=== PATIENT | female | born 1975 | race Caucasian/White ===

== ENCOUNTER 2020-12-30 22:18 | Inpatient (IN) | payer OTHER, SELFPAY ==
[2020-12-30 22:32] VITALS: BP 137/83; PULSE 109; RESP 29; TEMP 36.7; O2SAT 36; BMI 47.0
[2020-12-30 22:38] VITALS: O2SAT 35
--- NOTE | 2020-12-30 22:54 | XRR_ITS ---
PROCEDURE INFORMATION: Exam: XR Chest Exam date and time: 12/30/2020 10:54 PM Age: 45 years old Clinical indication: Dyspnea; Additional info: SOB TECHNIQUE: Imaging protocol: XR of the chest. Views: 1 view. COMPARISON: No relevant prior studies available. XR/XR chest 1V portable [id number] IMPRESSION: Interstitial and patchy airspace opacities are observed in both lungs which may represent pulmonary edema, ARDS or pneumonia. A small right pleural effusion is present. No pneumothorax is seen. The heart is normal in size. No acute fracture is seen.
[2020-12-30] MEDS: albuterol 8 gm MDI 4 PUFF INHALATION (23:05)
[2020-12-30 23:10] VITALS: PULSE 100; RESP 26; O2SAT 94
[2020-12-30 23:15] LABS: ABG PCO2 42.9 mmHg (35-45); ABG PH Result 7.39 (7.35-7.45); Arterial Blood Gas Hematocrit 37.1 % (37-47); Blood Gas Allen Test Pos; Blood Gas Sample Site Radial, right; Blood Gas Sample Type Arterial; HCO3 ABG 26.2 mmol/L (22-26); Oxygen Device NRB; PO2 ABG 67.2 mmHg (80.0-100.0)
[2020-12-30 23:20] VITALS: PULSE 102; RESP 26; O2SAT 96
[2020-12-31] VITALS (11 sets, daily range): BP systolic 111–141; BP diastolic 70–90; PULSE 80–95; RESP 16–24; TEMP 36.8–36.9; O2SAT 90–96
[2020-12-31 00:01] LABS: Basophils % 0.2 %; Hematocrit 37.2 % (37.0-47.0); Hemoglobin 11.3 g/dL (11.5-15.3); Lymphocytes # 0.7 10^3/uL (0.8-4.8); Lymphocytes % 14.1 %; Mean Corpuscular HGB Conc 30.4 g/dL (30.0-36.0); Mean Corpuscular Hemoglobin 25.7 pg (28.0-34.0); Mean Corpuscular Volume 84.7 fL (81-99); Mean Platelet Volume 10.2 fL (7.4-10.4); Monocytes # 0.6 10^3/uL (0.2-0.9); Monocytes % 11.9 %; Neutrophils # 3.59 10^3/uL (1.8-7.7); Neutrophils % 73.6 %; Nucleated Red Blood Cells % 0 %; Platelet Count 206 10^3/cmm (130-400); Red Blood Count 4.39 10^6/uL (4.1-5.3); Red Cell Distribution Width 16.3 % (12.1-15.1); White Blood Count 4.9 10^3/uL (4.0-10.0)
[2020-12-31 00:13] LABS: D Dimer 1.12 ug/mIFEU (0-0.59)
[2020-12-31 00:20] LABS: Lactic Sepsis W/Reflex 1.5 mmol/L (0.5-2.2)
--- NOTE | 2020-12-31 00:22 | ED_ITS ---
HPI - COVID General: Chief Complaint: COVID symptoms Stated Complaint: Fever\Coughing Time Seen by Provider: 12/30/20 22:54 Triage information: Has fever, cough or shortness of breath . No known COVID + exposure last 14 days History of Present Illness: HPI Narrative: 45-year-old female. She does not see a doctor. She notes that she has been sick 6 Friday. She had some body aches, headaches, cough, with some shortness of breath. She says she has a history of bronchitis, and figured it was that. She was sent home from work earlier in the evening because she was very short of breath. She presents to triage in our lobby with a pulse ox reading of 35% on room air. She denies any significant vomiting or diarrhea MD complaint: has COVID symptoms Prior covid testing: no COVID 19 common symptoms: positive fever(s), cough, non-productive cough, dyspnea and headache(s); negative nausea, vomiting or diarrhea COVID 19 other sytmptoms: positive chest pain COVID Results: SARS-CoV-2 Antigen (Rapid) Positive (Negative) H 12/30/20 23:45 12/30/20 Review of Systems Const: Reports: fever(s) Card: Reports: chest pain, edema and swelling of feet/ankles (chronic); Denies: palpitations Resp: Reports: dyspnea and non-productive cough GI: Denies: abdominal pain, nausea, vomiting or diarrhea Neuro: Reports: headache(s) Physical Exam Const: GENERAL APPEARANCE: cooperative, in distress and ill appearing ORIENTATION/CONSCIOUSNESS: Yes awake, Yes oriented to person, Yes oriented to place and Yes oriented to time HENMT: COMMON NORMALS: normocephalic HEAD & SCALP: normocephalic Eye: COMMON NORMALS: Equal, round and reactive pupils present and EOMs intact bilaterally PUPIL: Yes Equal, round and reactive pupils present Chest: COMMONS NORMALS: normal inspection of the chest Resp: EFFORT & INSPECTION: Yes tachypneic, Yes respiratory distress, No Actively coughing and Yes uses accessory muscles AUSCULTATION: rhonchi and wheezes Cardio: COMMON NORMALS: regular rhythm RATE: tachycardic RHYTHM: regular rhythm GI: COMMON NORMALS: Normal to inspection, nondistended, normoactive bowel sounds present and Soft to palpation PALPATION: Yes Soft to palpation Extremity: GENERAL: Yes edema (significant, chronic appearing) Neuro: SENSORIUM/ORIENTATION: Yes oriented to person, Yes oriented to place and Yes oriented to time Course Vital Signs: Vital signs: Vital Signs Temperature 98.1 F 12/30/20 22:32 Pulse Rate 102 H 12/30/20 23:20 Respiratory Rate 26 H 12/30/20 23:20 Blood Pressure 137/83 12/30/20 22:32 Pulse Oximetry 96 12/30/20 23:20 MDM - COVID MDM Narrative: Medical decision making narrative: 45-year-old female with a room air pulse ox of 35%. She is placed immediately on nonrebreather mask at 15 L. Saturations are 95 to 99% now. Heart rate is come down into the 80s. Blood pressure 136/95. High flow nasal cannula was ordered, but the patient did not tolerate. She also refused BiPAP. She prefers the nonrebreather mask. Chest x-ray shows severe bilateral pneumonitis. Her white blood cell count is 4.9. Sodium 134. Creatinine 0.7. Her lactic acid is negative. Her CRP is elevated, pro calcitonin is normal. Her rapid antigen for COVID-19 is positive. She has been given dexamethasone. We will order antivirals for her. Lab Data: Labs: Lab Results 12/30/20 12/30/20 12/30/20 Range/Units 23:10 23:45 23:45 WBC 4.9 (4.0-10.0) 10^3/ uL RBC 4.39 (4.1-5.3) 10^6/u L Hgb 11.3 L (11.5-15.3) g/dL Hct 37.2 (37.0-47.0) % MCV 84.7 (81-99) fL MCH 25.7 L (28.0-34.0) pg MCHC 30.4 (30.0-36.0) g/dL RDW 16.3 H (12.1-15.1) % Plt Count 206 (130-400) 10^3/c mm MPV 10.2 (7.4-10.4) fL Neut % (Auto) 73.6 % Lymph % (Auto) 14.1 % Morrison % (Auto) 11.9 % Eos % (Auto) 0.0 % Baso % (Auto) 0.2 % Neut # (Auto) 3.59 (1.8-7.7) 10^3/u L Lymph # (Auto) 0.7 L (0.8-4.8) 10^3/u L Morrison # (Auto) 0.6 (0.2-0.9) 10^3/u L Eos # (Auto) 0.0 (0.0-0.8) 10^3/u L Baso # (Auto) 0.0 (0.0-0.1) 10^3/u L Nucleated RBC % (a uto) 0 % Nucleated RBCs # 0.0 /100WBC D-Dimer 1.12 H (0-0.59) ug/mIFE U Specimen Type Arterial Sample Site Radial, right ABG pH 7.39 (7.35-7.45) ABG pCO2 42.9 (35-45) mmHg ABG pO2 67.2 L (80.0-100.0) mmH g ABG HCO3 26.2 H (22-26) mmol/L ABG Base Excess 1.0 (-2.0-2.0) mmol/ L Test Pos Hematocrit 37.1 (37-47) % O2 Delivery Device Nrb O2 Liters/Min 15.0 % Merchandise Flow Team Member ID Hinja Sodium (136-145) mmol/L Potassium (3.5-5.1) mmol/L Chloride (98-107) mmol/L Carbon Dioxide (22-29) mmol/L Anion Gap (5-19) BUN (6-20) mg/dL Creatinine (0.5-0.9) mg/dL GFR Calculation (90-130) mL/min Glucose (65-115) mg/dL Calculated Osmolal ity (285-295) mOsm/k g Lactic Acid (0.5-2.2) mmol/L Calcium (8.5-10.5) mg/dL Total Bilirubin (0.15-1.2) mg/dL AST (0-32) U/L ALT (0-33) U/L Alkaline Phosphata se (35-105) IU/L Lactate Dehydrogen ase (135-214) U/L Creatine Kinase (26-192) U/L C-Reactive Protein (0.0-4.9) mg/L NT-Pro-B Natriuret Pep (0-125) pg/mL Total Protein (6.6-8.7) g/dL Albumin (3.5-5.2) g/dL Globulin (1.3-4.6) g/dL Procalcitonin (0-0.5) ng/mL SARS-CoV-2 Ag (Rap id) (Negative) 12/30/20 12/30/20 12/30/20 Range/Units 23:45 23:45 23:45 WBC (4.0-10.0) 10^3/ uL RBC (4.1-5.3) 10^6/u L Hgb (11.5-15.3) g/dL Hct (37.0-47.0) % MCV (81-99) fL MCH (28.0-34.0) pg MCHC (30.0-36.0) g/dL RDW (12.1-15.1) % Plt Count (130-400) 10^3/c mm MPV (7.4-10.4) fL Neut % (Auto) % Lymph % (Auto) % Morrison % (Auto) % Eos % (Auto) % Baso % (Auto) % Neut # (Auto) (1.8-7.7) 10^3/u L Lymph # (Auto) (0.8-4.8) 10^3/u L Morrison # (Auto) (0.2-0.9) 10^3/u L Eos # (Auto) (0.0-0.8) 10^3/u L Baso # (Auto) (0.0-0.1) 10^3/u L Nucleated RBC % (a uto) % Nucleated RBCs # /100WBC D-Dimer (0-0.59) ug/mIFE U Specimen Type Sample Site ABG pH (7.35-7.45) ABG pCO2 (35-45) mmHg ABG pO2 (80.0-100.0) mmH g ABG HCO3 (22-26) mmol/L ABG Base Excess (-2.0-2.0) mmol/ L Test Hematocrit (37-47) % O2 Delivery Device O2 Liters/Min % Merchandise Flow Team Member ID Sodium 134 L (136-145) mmol/L Potassium 4.0 (3.5-5.1) mmol/L Chloride 98 (98-107) mmol/L Carbon Dioxide 24 (22-29) mmol/L Anion Gap 16.0 (5-19) BUN 21 H (6-20) mg/dL Creatinine 0.7 (0.5-0.9) mg/dL GFR Calculation 90.5 (90-130) mL/min Glucose 112 (65-115) mg/dL Calculated Osmolal ity 282 L (285-295) mOsm/k g Lactic Acid 1.5 (0.5-2.2) mmol/L Calcium 7.4 L (8.5-10.5) mg/dL Total Bilirubin 0.4 (0.15-1.2) mg/dL AST 35 H (0-32) U/L ALT 21 (0-33) U/L Alkaline Phosphata se 205 H (35-105) IU/L Lactate Dehydrogen ase 428 H (135-214) U/L Creatine Kinase 102 (26-192) U/L C-Reactive Protein 90.4 H (0.0-4.9) mg/L NT-Pro-B Natriuret Pep 1258 H (0-125) pg/mL Total Protein 7.0 (6.6-8.7) g/dL Albumin 3.1 L (3.5-5.2) g/dL Globulin 3.9 (1.3-4.6) g/dL Procalcitonin 0.41 (0-0.5) ng/mL SARS-CoV-2 Ag (Rap id) Positive H (Negative) COVID Results: SARS-CoV-2 Antigen (Rapid) Positive (Negative) H 12/30/20 23:45 12/30/20 Critical Care Time Critical Care Time: Critical Care Time: Yes Total Critical Care Time: 35 Attestation: This case had a high probability of a clinically significant, sudden, or life threatening deterioration of this patient's condition which required my full and direct attention, intervention and personal management. 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
[2020-12-31 00:30] LABS: NT Pro B Type Natriuretic Pept 1258 pg/mL (0-125); Procalcitonin 0.41 ng/mL (0-0.5)
[2020-12-31 00:41] LABS: Alanine Aminotransferase 21 U/L (0-33); Albumin Level 3.1 g/dL (3.5-5.2); Alkaline Phosphatase 205 IU/L (35-105); Aspartate Amino Transferase 35 U/L (0-32); Blood Urea Nitrogen 21 mg/dL (6-20); C Reactive Protein 90.4 mg/L (0.0-4.9); Calcium 7.4 mg/dL (8.5-10.5); Carbon Dioxide 24 mmol/L (22-29); Chloride 98 mmol/L (98-107); Creatine Phosphokinase 102 U/L (26-192); Globulin 3.9 g/dL (1.3-4.6); Glomerular Filtration Rate 90.5 mL/min (90-130); Glucose 112 mg/dL (65-115); Lactate Dehydrogenase 428 U/L (135-214); Osmolality Calculated 282 mOsm/kg (285-295); Sodium 134 mmol/L (136-145); Total Bilirubin 0.4 mg/dL (0.15-1.2)
[2020-12-31 01:59] LABS: SARS Covid-2 Antigen Positive (Negative)
--- NOTE | 2020-12-31 04:36 | PM.HP ---
Providers/Chief Complaint Admitting Physician: Karma Flores MD Chief Complaint: Fever\Coughing History of Present Illness Quynh Spangler is a 45 year old female without known PMH , no prior medical care , obesity with BMI was sent home from work after she appeared to be short of breath. She has been symptomatic for 6 days. had some body aches, headaches, cough, with some shortness of breath. She assumed it was bronchitis due to her past history. She is unvaccinated, tested + COVID. Review of Systems General: Reports: 10 or more systems reviewed and unremarkable except in HPI and below Const: Denies: fever(s), chills or body aches Eyes: Denies: change in vision, blurry vision or photophobia ENMT: Reports: hoarseness; Denies: throat pain, enlarged tonsils, odynophagia or nasal congestion Card: Denies: chest pain, palpitations, irregular heart rhythm, edema, swelling of feet/ankles, lightheadedness, pre-syncope, dyspnea on exertion or orthopnea Resp: Denies: dyspnea, productive cough, non-productive cough, wheezing, stridor, pain on inspiration, change in phlegm color, hemoptysis or chest congestion GI: Denies: abdominal pain, nausea, vomiting, hematemesis, coffee ground emesis, dysphagia, heartburn, diarrhea, constipation, GI cramping, change in stool character, hematochezia or melena : Denies: flank pain, difficulty voiding, dysuria, urinary frequency, urinary urgency, urinary hesitancy or hematuria Musc: Denies: neck pain, back pain, extremity pain, joint swelling, joint warmth or deformity Neuro: Denies: headache(s), numbness in extremities, weakness in extremities, sensory changes, difficulty walking, frequent falls, dizziness, vertigo, behavioral changes, Slurred speech present or seizure-like activity Psych: Denies: anxiety, depression, suicidal ideation or homicidal ideation Endo: Denies: polyuria, polydipsia, tired all the time, cold intolerance or hot flashes Zay/Lymph: Denies: easy bruising or easy bleeding Medications/Allergies Allergies Allergy/AdvReac Type Severity Reaction Status Date / Time No Known Allergies Allergy Verified 12/30/20 22:38 Vitals/I&O/Wt Last Vital Signs Temp 98.1 F 12/30/20 22:32 Pulse 102 H 12/30/20 23:20 Resp 26 H 12/30/20 23:20 BP 137/83 12/30/20 22:32 Pulse Ox 96 12/30/20 23:20 Weight last 48 hrs Weight 136.078 kg Physical Exam Narrative: EXAM NARRATIVE: GEN: Awake, alert and oriented, no acute distress CVS: S1S2 N RS: B/L coarse breath sounds Abd: Soft, nt/nd , bs+ LACROSSE PLAYER: no focal neuro deficits Data : 12/30/20 23:45 12/30/20 23:45 Micro: Microbiology 12/30/20 23:45 Blood Culture - Preliminary Blood SPECIMEN COLLECTED 12/30/20 23:30 Blood Culture - Preliminary Blood SPECIMEN COLLECTED A&P Assessment and plan (1) Respiratory failure: Due to COVID 19 Remdisivir 200mg iv x 1 followed by 100mg iv daily dexamethasone 6mg IVP daily duoneb q6h, budesonide q12h empiric levofloxacin Flutter valve/spirometer at bedside trend inflammatory markers including CRP, LDH, D dimer, Ferritin CTA PE to evalaute for PE given elevated D dimer check trop, BNP and EKG Status: Acute Qualifiers: Chronicity: acute Respiratory failure complication: hypoxia Qualified Code(s): J96.01 - Acute respiratory failure with hypoxia (2) Pneumonia due to COVID-19 virus: Status: Acute Attestations Medical Necessity Statement*: >2midnight admission will be needed for above treatment Coding Level of Care Code Acute Marine Extension Agent for [facility] Diagnoses Respiratory failure J96.01 Chronicity: acute Respiratory failure complication: hypoxia Pneumonia due to COVID-19 virus U07.1; J12.82
--- NOTE | 2020-12-31 04:40 | ECG_ITS ---
[facility] Test Date: 2020-12-31 Pat Name: Quynh Spangler Department: Room: Gender: Female Creche Attendant: : 1975 Requested By: Karma Hoffmann Order Number: [id number] Reading MD: NATHALIE PERSAUD Measurements Intervals [place] Rate: 89 P: 79 [place]: 130 QRS: 97 QRSD: 89 T: 44 QT: 343 QTc: 417 Interpretive Statements SINUS RHYTHM BORDERLINE RIGHT AXIS DEVIATION [QRS AXIS > 90] No previous ECG available for comparison Electronically Signed On 12-31-2020 20:13:34 CDT by NATHALIE PERSAUD [email or web address]
[2020-12-31] MEDS: enoxaparin 40 mg/0.4 mL Syringe SUBCUT (05:18)
[2020-12-31] MEDS: dexamethasone 4 mg/mL INJ 6 MG IVP (05:43)
[2020-12-31 05:45] LABS: Troponin T (5th) Once 22 ng/L (0-10)
[2020-12-31 05:52] LABS: NT Pro B Type Natriuretic Pept 1341 pg/mL (0-125)
[2020-12-31 06:47] LABS: Bilirubin Urine 1+ (Negative); Blood Urine 2+ (Negative); Glucose Urine UA Norm (Normal); Ketones Urine Negative (Negative); Leukocyte Esterase Urine 2+ (Negative); Nitrate Urine Negative (Negative); Protein Urine Trace (Negative); Specific Gravity, Urine 1.015 (1.005-1.030); Urine Appearance Clear (CLEAR); Urine Color Dark Yellow (Yellow); Urobilinogen Urine 4 mg/dL (Negative); pH Urine 6 (5-7)
[2020-12-31 06:48] LABS: Add Urine Culture? Yes; Add Urine Microscopic? YES; Bacteria Urine 2+ /hpf; RBC Urine RARE /hpf (0-2)
--- NOTE | 2020-12-31 09:41 | CTR_ITS ---
PROCEDURE INFORMATION: Exam: CTA Chest With Contrast Exam date and time: 12/31/2020 9:41 AM Age: 45 years old Clinical indication: Cough and fever; Additional info: Covid TECHNIQUE: Imaging protocol: Computed tomographic angiography of the chest with contrast. 3D rendering (Not supervised by radiologist): MIP and/or 3D reconstructed images were created by the technologist. Total images: 739 Radiation optimization: All CT scans at this facility use at least one of these dose optimization techniques: automated exposure control; mA and/or kV adjustment per patient size (includes targeted exams where dose is matched to clinical indication); or iterative reconstruction. Contrast material: OMNIPAQUE 350; Contrast volume: 77 ml; Contrast route: INTRAVENOUS (IV); COMPARISON: CR (CHEST, ) 12/30/2020 11:13 PM RADIATION DOSE METRICS: Total DLP (mGy-cm): 473.06 FINDINGS: Pulmonary arteries: Pulmonary artery evaluation of good technical quality with no pulmonary artery embolism identified. Aorta: Mild atherosclerotic disease is evident. Lungs: Extensive bilateral irregular areas of lung consolidation ground-glass opacities in interstitial thickening. Pleural spaces: Small bilateral pleural effusions are present. Heart: Mild cardiomegaly. Lymph nodes: Prominent mediastinal lymph nodes may be reactive. Bones/joints: Partially visualized spinal fusion hardware noted. Spinal degenerative changes are evident. Soft tissues: Unremarkable. CT/CT angio chest PE protcl [id number] IMPRESSION: 1. Mild cardiomegaly. 2. Small bilateral pleural effusions are present. 3. No pulmonary artery embolism identified. 4. Extensive bilateral irregular areas of lung consolidation ground-glass opacities in interstitial thickening. Commonly reported imaging features of COVID-19 pneumonia are present. Other processes such as influenza pneumonia and organizing pneumonia, as can be seen with drug toxicity and connective tissue disease, can cause a similar imaging pattern. (Reference: Genaro) REFERENCES: Genaro Maza, et al., Radiological Society of [place] Expert Consensus Statement on Reporting Chest CT Findings Related to COVID-19. Endorsed by the Society of Thoracic Radiology, the [place] [employer], and RSNA. Published August 25, 2019. Radiation Dose CTDIVOL = (mGy): DLP = 473.06 (mGy-cm)
[2020-12-31] MEDS: iohexol 350 mg/mL 100 mL Btl IV (10:17)
[2020-12-31] MEDS: pantoprazole DR 40 mg Tablet PO (10:46)
[2020-12-31] MEDS: levoFLOXacin 750 mg Tablet PO (10:46)
[2020-12-31 12:27] LABS: Hematocrit 39.6 % (37.0-47.0); Hemoglobin 12.2 g/dL (11.5-15.3); Lymphocytes # 0.5 10^3/uL (0.8-4.8); Lymphocytes % 10.3 %; Mean Corpuscular HGB Conc 30.8 g/dL (30.0-36.0); Mean Corpuscular Hemoglobin 26.2 pg (28.0-34.0); Mean Corpuscular Volume 85.2 fL (81-99); Mean Platelet Volume 10.2 fL (7.4-10.4); Monocytes # 0.3 10^3/uL (0.2-0.9); Monocytes % 5.1 %; Neutrophils # 4.27 10^3/uL (1.8-7.7); Neutrophils % 84.2 %; Nucleated Red Blood Cells % 0 %; Platelet Count 238 10^3/cmm (130-400); Red Blood Count 4.65 10^6/uL (4.1-5.3); Red Cell Distribution Width 16.5 % (12.1-15.1); White Blood Count 5.1 10^3/uL (4.0-10.0)
[2020-12-31 12:43] LABS: Alanine Aminotransferase 20 U/L (0-33); Albumin Level 3.2 g/dL (3.5-5.2); Alkaline Phosphatase 221 IU/L (35-105); Anion Gap 13.5 (5-19); Aspartate Amino Transferase 32 U/L (0-32); Blood Urea Nitrogen 15 mg/dL (6-20); C Reactive Protein 83.5 mg/L (0.0-4.9); Calcium 7.7 mg/dL (8.5-10.5); Carbon Dioxide 26 mmol/L (22-29); Chloride 100 mmol/L (98-107); Creatine Phosphokinase 94 U/L (26-192); Globulin 4.4 g/dL (1.3-4.6); Glomerular Filtration Rate 108.1 mL/min (90-130); Glucose 121 mg/dL (65-115); Lactate Dehydrogenase 524 U/L (135-214); Magnesium 2.3 mg/dL (1.7-2.3); Osmolality Calculated 282 mOsm/kg (285-295); Phosphorus 2.5 mg/dL (2.5-4.5); Potassium 4.5 mmol/L (3.5-5.1); Sodium 135 mmol/L (136-145); Total Bilirubin 0.4 mg/dL (0.15-1.2); Total Protein 7.6 g/dL (6.6-8.7)
--- NOTE | 2020-12-31 13:30 | P.PN_ITS ---
Subjective Subjective: Interval history: Admitted overnight. H&P and labs appreciated. Examination today patient seen in the ER. Currently on 12 L nonrebreather mask. Denies any nausea vomiting, headache. States does not have appetite. States everything tastes bad, denies any nausea vomiting, headache. Discussed of transitioning over to high flow nasal cannula keeping her saturation over 90% but she states she does not like things put in her nose and makes her very anxious so is requesting to be kept on nonrebreather mask for as long as possible. We also discussed being on nonrebreather would make it difficult for her to eat. She states for now she does not want to eat and 1 Augmentin nonrebreather mask. Vitals/I&O/Wt Last Vital Signs Temp 98.3 F 12/31/20 06:12 Pulse 88 12/31/20 10:29 Resp 18 12/31/20 10:29 BP 112/76 12/31/20 10:29 Pulse Ox 90 12/31/20 10:29 Weight last 48 hrs Weight 136.078 kg Physical Exam Narrative: EXAM NARRATIVE: General: No acute distress, AO x3 on nonrebreather mask, saturating 90%. Morbidly obese, looking dehydrated HEENT: PERRLA, pupils bilaterally equal and reactive Chest: Bilateral bronchial breath sounds, occasional rhonchi all over the lung schrader with occasional crackles, equal good air entry bilaterally CVS: S1-S2 regular, no murmurs, no tachycardia, no gallops, no rubs Abdomen: Soft, nontender, no organomegaly, bowel sounds present Neuro: No focal deficits, no facial deformity, AO x3, power 5/5 in all limbs Data : 12/31/20 12:01 12/31/20 12:01 Micro: Microbiology 12/31/20 06:10 Legionella Urinary Antigen - Final Unknown Source 12/30/20 23:45 Blood Culture - Preliminary Blood SPECIMEN COLLECTED 12/30/20 23:30 Blood Culture - Preliminary Blood SPECIMEN COLLECTED A&P Assessment and plan (1) Respiratory failure: Status: Acute Qualifiers: Chronicity: acute Respiratory failure complication: hypoxia Qualified Code(s): J96.01 - Acute respiratory failure with hypoxia (2) Pneumonia due to COVID-19 virus: Status: Acute Additional A&P Information Hypoxia/respiratory failure secondary to COVID-19 pneumonia: At least moderate disease. Continue with remdesivir to finish 5-day course. Dexamethasone 6 mg IV daily. DuoNebs every 4 hours, budesonide twice daily. Vitamin C, zinc. Tessalon Perles for cough suppression. Pulmonary toilet with incentive spirometry flutter valve. Monitor inflammatory markers including ESR, CRP, fibrinogen, LDH. Pro-Osvaldo negative, no leukocytosis. Low chances of bacterial pneumonia for now. Check MRSA swab, urine Legionella, bacterial antigen. D-dimer elevated. CTA angio to rule out pulmonary embolism. For now start patient on Eliquis 5 mg twice daily. If CTA negative for PE patient will most likely require anticoagulation for 14 days on discharge. Given hypoxic respiratory failure we will try to keep patient as negative as possible. Strict input output charting. Daily weights. For now patient looks mildly dehydrated. Start patient on normal saline at 50 cc/h. Xanax 0.5 3 times daily as needed for anxiety. UTI: Complains of mild dysuria. UA concerning. Continue with levofloxacin. We will follow up urine culture results and de- escalate antibiotics accordingly. Full code. Eliquis will help with DVT prophylaxis. Regular diet. Protonix for PUD prophylaxis Transfer to when room available. Attestations Medical Necessity Statement*: Patient requires further hospitalization for management of hypoxia secondary to COVID-19 pneumonia requiring high oxygen supplementation. Time Spent in Patient Care: Greater than 35 minutes (>than 50% of time spent in counselling and/or direct pt care on unit) . Coding Level of Care Code Acute Service Center Technician for [facility] Diagnoses Respiratory failure J96.01 Chronicity: acute Respiratory failure complication: hypoxia Pneumonia due to COVID-19 virus U07.1; J12.82
[2020-12-31 13:32] LABS: INR 0.95 (0.8-1.2)
[2020-12-31] MEDS: remdesivir 200 MG in sodium chloride 0.9% (100 ml) 100 ML 100 MG IV (13:35)
[2020-12-31 13:45] LABS: D Dimer 1.26 ug/mIFEU (0-0.59)
[2020-12-31] MEDS: zinc gluconate 50 mg Tablet PO (14:04)
[2020-12-31 14:22] LABS: Erythrocyte Sedimentation Rate 46 mm/hr (0-15)
[2020-12-31] MEDS: benzonatate 100 mg Capsule PO ×2 (14:31→21:59)
[2020-12-31] MEDS: ipratropium-albuterol 3 mL Neb INHALATION ×2 (16:33→22:07)
[2020-12-31] MEDS: apixaban 5 mg Tablet PO (21:59)
[2020-12-31] MEDS: ascorbic acid 500 mg Tablet 1000 MG PO (21:59)
[2020-12-31] MEDS: budesonide 0.5 mg/2 mL Neb INHALATION (22:06)
[2021-01-01] VITALS (13 sets, daily range): BP systolic 106–156; BP diastolic 75–87; PULSE 68–91; RESP 18–28; TEMP 36.6–36.8; O2SAT 88–96
[2021-01-01] MEDS: ipratropium-albuterol 3 mL Neb INHALATION ×4 (02:47→20:04)
[2021-01-01] MEDS: dexamethasone 10 mg/mL INJ 6 MG IVP (05:54)
[2021-01-01 06:47] LABS: C Reactive Protein 49.3 mg/L (0.0-4.9); D Dimer 1.28 ug/mIFEU (0-0.59); Ferritin 97 ng/mL (15-150); Lactate Dehydrogenase 445 U/L (135-214)
[2021-01-01 06:51] LABS: Procalcitonin 0.25 ng/mL (0-0.5)
[2021-01-01] MEDS: budesonide 0.5 mg/2 mL Neb INHALATION ×2 (09:03→20:04)
[2021-01-01] MEDS: levoFLOXacin 750 mg Tablet PO (10:26)
[2021-01-01] MEDS: zinc gluconate 50 mg Tablet PO (10:27)
[2021-01-01] MEDS: pantoprazole DR 40 mg Tablet PO (10:28)
[2021-01-01] MEDS: ascorbic acid 500 mg Tablet 1000 MG PO ×2 (10:28→19:03)
[2021-01-01] MEDS: apixaban 5 mg Tablet PO (10:28)
[2021-01-01] MEDS: benzonatate 100 mg Capsule PO ×3 (10:28→22:09)
--- NOTE | 2021-01-01 11:21 | P.PN_ITS ---
Subjective Subjective: Interval history: Quynh reports she is still significantly short of breath. She is not for sure if she is better. She can get up to a bedside commode. Medications: Reviewed: Yes Vitals/I&O/Wt Last Vital Signs Temp 97.9 F 01/01/21 08:00 Pulse 86 01/01/21 09:14 Resp 22 H 01/01/21 09:14 BP 106/75 01/01/21 08:00 Pulse Ox 93 01/01/21 09:14 12/31/20 01/01/21 01/01/21 22:59 06:59 14:59 Intake Total 360 / 460 200 / 660 Output Total 1300 / 1300 Balance 360 / 460 -1100 / -640 Weight last 48 hrs Weight 136.078 kg Physical Exam Narrative: EXAM NARRATIVE: General exam no apparent distress Cardiovascular regular rate and rhythm without murmur Lungs coarse breath sounds bilaterally Abdomen is soft with positive bowel sounds, obese Extremities trace bilateral edema Data : 12/31/20 12:01 12/31/20 12:01 Micro: Microbiology 12/31/20 06:10 Urine Culture - Final Urine,Clean Catch 12/30/20 23:45 Blood Culture - Preliminary Blood NEGATIVE TO DATE 12/30/20 23:30 Blood Culture - Preliminary Blood NEGATIVE TO DATE 12/31/20 06:10 Legionella Urinary Antigen - Final Unknown Source A&P Assessment and plan (1) Respiratory failure: Due to COVID 19 Continue remdesivir Continue DuoNeb Continue budesonide Levaquin empirically Incentive spirometry CT pulmonary embolism protocol negative for PE Lasix 20 mg IV x1. BNP is elevated. Bacterial antigen panel, MRSA PCR pending Procalcitonin level not elevated Improvement not significant over the first 24 hours. Actemra to be given today. Status: Acute Qualifiers: Chronicity: acute Respiratory failure complication: hypoxia Qualified Code(s): J96.01 - Acute respiratory failure with hypoxia (2) Pneumonia due to COVID-19 virus: Status: Acute Additional A&P Information Full code Eliquis for DVT prophylaxis. Dosing decreased. 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
[2021-01-01] MEDS: FUROsemide 10 mg/mL SDV 2mL 20 MG IVP (12:54)
[2021-01-01] MEDS: remdesivir 100 MG in sodium chloride 0.9% (100 ml) 100 ML IV (19:03)
[2021-01-01] MEDS: apixaban 5 mg Tablet 2.5 MG PO (22:09)
[2021-01-02] VITALS (16 sets, daily range): BP systolic 111–175; BP diastolic 68–107; PULSE 73–89; RESP 17–30; TEMP 36.7–37.5; O2SAT 90–98
[2021-01-02] MEDS: ipratropium-albuterol 3 mL Neb INHALATION ×4 (03:40→20:07)
[2021-01-02] MEDS: dexamethasone 10 mg/mL INJ 6 MG IVP (04:53)
[2021-01-02 07:17] LABS: Hematocrit 38.4 % (37.0-47.0); Hemoglobin 11.4 g/dL (11.5-15.3); Lymphocytes # 0.6 10^3/uL (0.8-4.8); Lymphocytes % 13.5 %; Mean Corpuscular HGB Conc 29.7 g/dL (30.0-36.0); Mean Corpuscular Volume 87.5 fL (81-99); Mean Platelet Volume 10.1 fL (7.4-10.4); Monocytes # 0.4 10^3/uL (0.2-0.9); Monocytes % 8.6 %; Neutrophils # 3.14 10^3/uL (1.8-7.7); Neutrophils % 77.4 %; Nucleated Red Blood Cells % 0 %; Platelet Count 223 10^3/cmm (130-400); Red Blood Count 4.39 10^6/uL (4.1-5.3); Red Cell Distribution Width 16.5 % (12.1-15.1); White Blood Count 4.1 10^3/uL (4.0-10.0)
[2021-01-02 07:45] LABS: Alanine Aminotransferase 14 U/L (0-33); Alkaline Phosphatase 173 IU/L (35-105); Anion Gap 11.3 (5-19); Aspartate Amino Transferase 20 U/L (0-32); Blood Urea Nitrogen 21 mg/dL (6-20); Carbon Dioxide 26 mmol/L (22-29); Chloride 103 mmol/L (98-107); Globulin 4.1 g/dL (1.3-4.6); Glomerular Filtration Rate 172.6 mL/min (90-130); Glucose 107 mg/dL (65-115); Osmolality Calculated 285 mOsm/kg (285-295); Potassium 4.3 mmol/L (3.5-5.1); Sodium 136 mmol/L (136-145); Total Bilirubin 0.3 mg/dL (0.15-1.2); Total Protein 7.1 g/dL (6.6-8.7)
[2021-01-02 08:00] LABS: Calcium 8.3 mg/dL (8.5-10.5)
[2021-01-02] MEDS: benzonatate 100 mg Capsule PO ×3 (08:30→21:45)
[2021-01-02] MEDS: levoFLOXacin 750 mg Tablet PO (08:30)
[2021-01-02] MEDS: zinc gluconate 50 mg Tablet PO (08:30)
[2021-01-02] MEDS: ascorbic acid 500 mg Tablet 1000 MG PO ×2 (08:31→17:31)
[2021-01-02] MEDS: pantoprazole DR 40 mg Tablet PO (08:31)
[2021-01-02] MEDS: apixaban 5 mg Tablet 2.5 MG PO ×2 (08:31→21:45)
[2021-01-02] MEDS: budesonide 0.5 mg/2 mL Neb INHALATION ×2 (09:18→20:07)
--- NOTE | 2021-01-02 09:48 | PC.CHAP ---
Pastoral Care Encounter/Spiritual Assessment Type of Contact [] Declined cherry dipper visit [] Patient/Family/Request visit [] Outpatient visit [] Follow-up visit [] Physician referral [] Code/Alert [x] Routine visit [] Staff referral [] Actively dying [] Patient sleeping [] Family support [] [] Out of room [] Palliative care [] [] Receiving care in room [] Pre-surgical visit [] Trauma [] Long length of stay [] ICU visit [x] Other: covid Relational/Emotional Strength [] Patient feels connected with others/family/visitors/staff [] Distress [] Loneliness/isolation [] Abandonment Spirituality of Patient [] Person of Nuha [] Attends Mosque of their Nuha [] Believes in Prayer [] Reads Bible or Caodaism materials [] There are Spiritual issues to be addressed Talent Development Director Interventions [x] Prayer [] Active listening [] Non-anxious presence [] Spiritual/emotional support [] Crisis/trauma care [] Spiritual counseling [] Bereavement support [] Provided bereavement packet [] Provided Bible/devotional materials [] Provided toy/stuffed animal, coloring book to patient or family member [] Provided Communion [] Anointing/[place] [] Salvation [x] Completed spiritual assessment [] Other: Impact on Illness or Injury [] Angry [] Fearful [] Anxious [] Often cries [] Exhaustion [] Unable to work [] Unable to attend mu-ism [] Unable to walk/stand [] Unable to read [] Unable to drive [] Unable to eat/drink [] Unable to sleep [] Unable to be with family [] Patient intubated [] Other: Summary Time spent with patient
--- NOTE | 2021-01-02 11:56 | P.PN_ITS ---
Subjective Subjective: Interval history: Quynh reports she is feeling better. Less short of breath. Able to complete some sentences. No chest discomfort. Medications: Reviewed: Yes Vitals/I&O/Wt Last Vital Signs Temp 98.1 F 01/02/21 08:00 Pulse 88 01/02/21 09:31 Resp 18 01/02/21 09:26 BP 121/68 01/02/21 08:00 Pulse Ox 90 01/02/21 09:26 01/01/21 01/02/21 01/02/21 22:59 06:59 14:59 Intake Total 440 / 540 340 / 340 Output Total 650 / 650 Balance 440 / 540 -650 / -110 340 / 340 Physical Exam Narrative: EXAM NARRATIVE: General exam no apparent distress Cardiovascular regular rate and rhythm without murmur Lungs coarse breath sounds bilaterally Abdomen is soft with positive bowel sounds, obese Extremities no cyanosis clubbing or edema Data : 01/02/21 06:33 01/02/21 06:33 Micro: Microbiology 01/01/21 04:08 MRSA Culture - Final Nose 01/01/21 04:07 Bacterial Antigens - Final Urine,Voided 12/31/20 06:10 Urine Culture - Final Urine,Clean Catch A&P Assessment and plan (1) Respiratory failure: Due to COVID 19 Continue remdesivir Continue DuoNeb Continue budesonide Levaquin empirically Incentive spirometry CT pulmonary embolism protocol negative for PE Lasix 20 mg IV x1 given 01/01 Bacterial antigen panel, MRSA PCR negative Procalcitonin level not elevated Tocilizumab given January 01 Overall appears to be improving. Status: Acute Qualifiers: Chronicity: acute Respiratory failure complication: hypoxia Qualified Code(s): J96.01 - Acute respiratory failure with hypoxia (2) Pneumonia due to COVID-19 virus: Status: Acute Additional A&P Information Full code Eliquis for DVT prophylaxis. Dosing decreased. Attestations Medical Necessity Statement*: Needs continued hospitalization for antiviral, high flow oxygen secondary to severe COVID-19 pneumonia. Coding Level of Care Code Acute Plant Technician for [facility] Diagnoses Respiratory failure J96.01 Chronicity: acute Respiratory failure complication: hypoxia Pneumonia due to COVID-19 virus U07.1; J12.82
[2021-01-02] MEDS: remdesivir 100 MG in sodium chloride 0.9% (100 ml) 100 ML IV (17:31)
[2021-01-03] VITALS (9 sets, daily range): BP systolic 122–156; BP diastolic 83–97; PULSE 79–97; RESP 16–20; TEMP 36.4–36.7; O2SAT 83–97
[2021-01-03] MEDS: dexamethasone 10 mg/mL INJ 6 MG IVP (05:40)
[2021-01-03] MEDS: zinc gluconate 50 mg Tablet PO (08:57)
[2021-01-03] MEDS: pantoprazole DR 40 mg Tablet PO (08:57)
[2021-01-03] MEDS: apixaban 5 mg Tablet 2.5 MG PO (08:57)
[2021-01-03] MEDS: levoFLOXacin 750 mg Tablet PO (08:57)
[2021-01-03] MEDS: ascorbic acid 500 mg Tablet 1000 MG PO (08:57)
[2021-01-03] MEDS: benzonatate 100 mg Capsule PO (08:58)
[2021-01-03] MEDS: ipratropium-albuterol 3 mL Neb INHALATION (09:08)
[2021-01-03] MEDS: budesonide 0.5 mg/2 mL Neb INHALATION (09:08)
--- NOTE | 2021-01-03 09:58 | PC.CHAP ---
Pastoral Care Encounter/Spiritual Assessment Type of Contact [] Declined telesales representative visit [] Patient/Family/Request visit [] Outpatient visit [] Follow-up visit [] Physician referral [] Code/Alert [x] Routine visit [] Staff referral [] Actively dying [] Patient sleeping [] Family support [] [] Out of room [] Palliative care [] [] Receiving care in room [] Pre-surgical visit [] Trauma [] Long length of stay [] ICU visit [x] Other:covid Relational/Emotional Strength [] Patient feels connected with others/family/visitors/staff [] Distress [] Loneliness/isolation [] Abandonment Spirituality of Patient [] Person of Nuha [] Attends Congregation of their Nuha [] Believes in Prayer [] Reads Bible or Gnosticist materials [] There are Spiritual issues to be addressed Med Specialist Interventions [x] Prayer [] Active listening [] Non-anxious presence [] Spiritual/emotional support [] Crisis/trauma care [] Spiritual counseling [] Bereavement support [] Provided bereavement packet [] Provided Bible/devotional materials [] Provided toy/stuffed animal, coloring book to patient or family member [] Provided Communion [] Anointing/[place] [] Salvation [x] Completed spiritual assessment [] Other: Impact on Illness or Injury [] Angry [] Fearful [] Anxious [] Often cries [] Exhaustion [] Unable to work [] Unable to attend protestant [] Unable to walk/stand [] Unable to read [] Unable to drive [] Unable to eat/drink [] Unable to sleep [] Unable to be with family [] Patient intubated [] Other: Summary Time spent with patient
--- NOTE | 2021-01-03 11:54 | PM.DCS ---
Discharge Providers Date of Admission: 12/31/20 02:33 Date of Discharge: January 03, 2021 Attending Provider at Admission: Aaron Resendez MD Attending Provider at Discharge: Placido Lambert MD Diagnoses at Discharge Discharge Diagnosis (1) Respiratory failure: Status: Acute Qualifiers: Chronicity: acute Respiratory failure complication: hypoxia Qualified Code(s): J96.01 - Acute respiratory failure with hypoxia (2) Pneumonia due to COVID-19 virus: Status: Acute Reason for Visit Reason for Visit: Fever\Coughing Hospital Course Hospital Course Quynh is a 45-year-old white female who presented the hospital with COVID-19 pneumonia, and shortness of breath. She required high flow oxygen. She was given remdesivir, dexamethasone, and Tocilizumab. With the above therapy she rapidly improved. There was no evidence of superimposed bacterial infection discovered. By January 03 she had an improved to a degree she wished to go home. She was only requiring 2 L of oxygen at rest, and home oxygen evaluation revealed she required 5 with exertion. She will discharged on home oxygen, follow-up with her primary care provider in 3 to 5 days with a telehealth visit. She will finish up 5 more days of dexamethasone. She should return for any worsening. Physical Exam Narrative: EXAM NARRATIVE: General exam no apparent distress Neck is supple no lymphadenopathy or thyromegaly Cardiovascular regular rate and rhythm without murmur Lungs clear Abdomen is soft with positive bowel sounds Extremities no cyanosis clubbing or edema Discharge Data Data Completed and Pending: Completed Studies During Hospitalization Category Date Time Status CT angio chest PE protcl [id number] Rout ine Cat Scan 12/31/20 09:41 Completed XR chest 1V lukasz ble [id number] Stat Exams 12/30/20 22:54 Completed Pending at discharge Category Date Time Status Blood Culture Sta t Lab 12/30/20 23:45 Results Sputum Culture an d Gram Stain Stat Lab 12/31/20 09:41 Uncollected Vitals: Last Vital Signs Temp 98.1 F 01/03/21 08:00 Pulse 88 01/03/21 09:15 Resp 18 01/03/21 09:09 BP 134/85 01/03/21 08:00 Pulse Ox 87 L 01/03/21 10:59 Discharge Plan Discharge Patient Disposition: Home Condition: Stable Prescriptions: New dexamethasone 6 mg tablet 6 mg PO DAILY Qty: 5 RF: 0 Continued potassium chloride 10 mEq tablet extended release 10 meq PO QAM RF: 0 Aspir-81 81 mg Tablet,Delayed Release (Dr/Ec) 81 mg PO DAILY PRN (Reason: Pain) RF: 0 tramadol 50 mg tablet 50 mg PO Q6H PRN (Reason: Pain) RF: 0 Tylenol Extra Strength 500 mg Tablet 1,000 mg PO PRN RF: 0 furosemide 20 mg tablet 20 mg PO QAM RF: 0 Excedrin Migraine 250-250-65 mg Tablet 2 tab PO PRN RF: 0 Discontinued Aleve 220 mg Tablet 440 mg PO PRN RF: 0 ibuprofen 200 mg Tablet 400 mg PO PRN RF: 0 Discharge Orders: Discharge Order (Routine); Ordered 01/03/21 Ordered By: Placido Lambert Discharge Diet: Cardiac Discharge Activity: Increase activity as tolerated Patient Instructions: Opioid Safety Activity Restrictions/Additional Instructions: Finish up 5 more days of dexamethasone as instructed Oxygen 2 L at rest, 5 L with exertion. Do not overexert. Return for any worsening of breathing Make sure you keep a telehealth visit with your primary care provider in the next 3 to 5 days. Nursing to send a copy of this discharge summary to her primary care provider. Please schedule appointment prior to discharge. Discharge Attestations Time Spent in Discharge Care*: greater than 30 min Quality Metrics Clinical Quality Measures During this hospital stay, did patient experience: None Coding Level of Care Code Acute Gretcheng VAZQUEZ OROURKE note Diagnoses Respiratory failure J96.01 Chronicity: acute Respiratory failure complication: hypoxia Pneumonia due to COVID-19 virus U07.1; J12.82
--- NOTE | 2021-01-09 11:18 | PC.SOCIAL ---
follow up call made with patient. patient reports she is using 2L O2 at rest and 5L with exertion. Has follow up appointment that was given prior to discharge. Completed course of Dexamethasone. Patient given quarantine end date 01-13.
== END 2021-01-03 14:00 | disposition home or self-care (01) | DRG 177 ==
LOC: ER 12-31 06:10 → MS 2A 12-31 10:15
PROVIDERS: Student in an Organized Health Care Education/Training Program; Admitting Provider Student in an Organized Health Care Education/Training Program; Emergency Provider Emergency Medicine; Visit Provider Internal Medicine
DX: U07.1 COVID-19 (principal); J12.82 Pneumonia due to coronavirus disease 2019; J96.01 Acute respiratory failure with hypoxia; Z68.42 Body mass index [BMI] 45.0-49.9, adult; N39.0 Urinary tract infection, site not specified; E66.9 Obesity, unspecified; E86.0 Dehydration
CPT/HCPCS: 36415; 36600; 71045; 71275; 80053; 81001; 82550; 82728; 82803; 83605; 83615; 83735; 83880; 84100; 84145; 84484; 85025; 85378; 85610; 85651; 86140; 86403; 87040; 87086; 87426; 87449; 87641; 93005; 94640; 94664; 96372; 96374; 99291; J1100; J1650; J1940; J3262; J3535; J7626; Q9967

== ENCOUNTER 2021-05-11 13:09 | Emergency (ER) | payer OTHER, SELFPAY ==
[2021-05-11 13:56] VITALS: BP 176/96; PULSE 94; RESP 16; TEMP 36.9; O2SAT 99; BMI 46.5
--- NOTE | 2021-05-11 14:00 | XR_ITS ---
WS: [id number] Exam: XR foot LT min 3V* [id number] Date/Time of Exam: 05/11/2021 2:02 PM Reason For Exam: 1/2 toe pain No acute fracture or dislocation. No soft tissue foreign bodies are seen. Prominent plantar heel spur . XR/XR foot LT min 3V* [id number] IMPRESSION: 1. No fracture or other significant finding. Large heel spur.
--- NOTE | 2021-05-11 14:47 | ED_ITS ---
Documented by User: JAC Jacques 05/11/21 14:50 HPI - Extremity Problem General: Chief complaint: Extremity Problem,Nontraumatic Stated complaint: LEFT FOOT INJURY Time Seen by Provider: 05/11/21 13:59 History of Present Illness: HPI Narrative: Patient presents with redness to her left #2 toe and pain in #1 and 2 toe. Denies any fever chills. Denies any history of diabetes. Does have lymphedema. MD Complaint: extremity pain Onset (ago): day(s) Pain Consistency: constant Location: left and toe Severity scale (1-10): 3 Quality: aching Radiation: none Exacerbating factors: weight bearing Associated symptoms: Reports no associated symptoms; Deny chest pain, fever(s) or rash Review of Systems Const: Denies: fever(s), chills or body aches Eyes: Denies: change in vision or blurry vision ENMT: Denies: throat pain or nasal congestion Card: Denies: chest pain or dyspnea on exertion Resp: Denies: dyspnea, productive cough or non-productive cough GI: Denies: abdominal pain, nausea or vomiting Musc: Denies: extremity pain Skin/Breast: Reports: erythema (Second toe with pain second toe and first toe), skin tenderness and skin swelling; Denies: rash Neuro: Denies: headache(s) Psych: Denies: anxiety or depression Zay/Lymph: Denies: easy bruising Physical Exam Const: COMMON NORMALS: no acute distress GENERAL APPEARANCE: cooperative Resp: COMMON NORMALS: normal respiratory effort Cardio: COMMON NORMALS: regular rate RATE: regular rate Skin: OTHER: Mild redness to #2 toe from the base to the top. Slightly warm t o touch. Mild drainage clear. #1 toe appears fine except for thickened nail and does have a small 1 to 2 mm ulcer on the plantar aspect of the toe but no redness noted to the toe. Full range of motion both toes no red streaks extending up the foot. Course Vital Signs: Vital signs: Vital Signs Temperature 98.4 F 05/11/21 13:56 Pulse Rate 94 05/11/21 13:56 Respiratory Rate 16 05/11/21 13:56 Blood Pressure 176/96 05/11/21 13:56 Pulse Oximetry 99 05/11/21 13:56 MDM - Extremity (Nontraumatic) MDM Narrative: Medical decision making narrative: Patient presents with toe pain and #1 2 toes the left foot. Second toe is red with mild swelling and slight drainage. Is warm to the touch there is no red streak extending to the foot. #1 toe has a very thickened nail and has 1 to 2 mm superficial ulcer on the plantar aspect near the tip. No redness noted to the toe no tenderness on palpation. Radiology studies are negative. Patient encouraged follow-up primary care provider on Friday for reevaluation. Dressing was applied to toes. Discharge Plan Discharge Patient Disposition: Home Clinical Impression: Cellulitis Qualifiers: Site of cellulitis: extremity Site of cellulitis of extremity: toe Laterality: left Qualified Code(s): L03.032 - Cellulitis of left toe Condition: Stable Prescriptions: New cephalexin 500 mg capsule 500 mg PO Q8H 7 Days Qty: 21 RF: 0 Celebrex 100 mg capsule 100 mg PO BID Qty: 20 RF: 0 No Action potassium chloride 10 mEq tablet extended release 10 meq PO QAM RF: 0 aspirin 81 mg Tablet,Delayed Release (Dr/Ec) 81 mg PO DAILY PRN (Reason: Pain) RF: 0 tramadol 50 mg tablet 50 mg PO Q6H PRN (Reason: Pain) RF: 0 Tylenol Extra Strength 500 mg Tablet 1,000 mg PO PRN RF: 0 furosemide 20 mg tablet 20 mg PO QAM RF: 0 Excedrin Migraine 250-250-65 mg Tablet 2 tab PO PRN RF: 0 dexamethasone 6 mg tablet 6 mg PO DAILY Qty: 5 RF: 0 Discharge Orders: Discharge ED (Routine); Ordered 05/11/21 Ordered By: Miguel Ángel Castellon Discharge Diet: Usual diet Discharge Activity: Increase activity as tolerated Patient Instructions: Cellulitis (ED) Activity Restrictions/Additional Instructions: Follow-up with medical provider as directed. Take medications as prescribed. Return to the ER or your medical provider if condition worsens. Please read and understand discharge instructions. If any questions ask please. Coding Level of Care Code ED Superintendent Storage Area for [facility] Fwd Exam Expanded Problem Focused Documented by User: Caden Silvestre DO 05/11/21 16:04 HPI - Extremity Problem General: Chief complaint: Extremity Problem,Nontraumatic Stated complaint: LEFT FOOT INJURY Time Seen by Provider: 05/11/21 13:59 Course Vital Signs: Vital signs: Vital Signs Temperature 98.4 F 05/11/21 13:56 Pulse Rate 94 05/11/21 13:56 Respiratory Rate 16 05/11/21 13:56 Blood Pressure 176/96 05/11/21 13:56 Pulse Oximetry 99 05/11/21 13:56 MDM - Extremity (Nontraumatic) MDM Narrative: Medical decision making narrative: Chart reviewed and patient discussed with midlevel. Agree with assessment and plan. Discharge Plan Discharge Patient Disposition: Home Clinical Impression: Cellulitis Qualifiers: Site of cellulitis: extremity Site of cellulitis of extremity: toe Laterality: left Qualified Code(s): L03.032 - Cellulitis of left toe Condition: Stable Prescriptions: New cephalexin 500 mg capsule 500 mg PO Q8H 7 Days Qty: 21 RF: 0 Celebrex 100 mg capsule 100 mg PO BID Qty: 20 RF: 0 No Action potassium chloride 10 mEq tablet extended release 10 meq PO QAM RF: 0 aspirin 81 mg Tablet,Delayed Release (Dr/Ec) 81 mg PO DAILY PRN (Reason: Pain) RF: 0 tramadol 50 mg tablet 50 mg PO Q6H PRN (Reason: Pain) RF: 0 Tylenol Extra Strength 500 mg Tablet 1,000 mg PO PRN RF: 0 furosemide 20 mg tablet 20 mg PO QAM RF: 0 Excedrin Migraine 250-250-65 mg Tablet 2 tab PO PRN RF: 0 dexamethasone 6 mg tablet 6 mg PO DAILY Qty: 5 RF: 0 Discharge Orders: Discharge ED (Routine); Ordered 05/11/21 Ordered By: Miguel Ángel Castellon Discharge Diet: Usual diet Discharge Activity: Increase activity as tolerated Patient Instructions: Cellulitis (ED) Activity Restrictions/Additional Instructions: Follow-up with medical provider as directed. Take medications as prescribed. Return to the ER or your medical provider if condition worsens. Please read and understand discharge instructions. If any questions ask please. Coding Level of Care Code ED Superintendent Storage Area for [facility] Fwd Exam Expanded Problem Focused
== END 2021-05-11 14:41 | disposition home or self-care (01) ==
PROVIDERS: Emergency Provider Nurse Practitioner Family
DX: L03.032 Cellulitis of left toe (principal); Z79.82 Long term (current) use of aspirin
CPT/HCPCS: 73630; 99282

== ENCOUNTER 2021-07-17 15:46 | Emergency (ER) | payer OTHER, SELFPAY ==
[2021-07-17 16:08] VITALS: BMI 45.7
[2021-07-17 16:12] VITALS: BP 140/88; PULSE 89; RESP 14; TEMP 36.7; O2SAT 99
--- NOTE | 2021-07-17 19:50 | W.ED.SKABFB ---
HPI - Skin/Abscess/Foreign Bdy General: Chief complaint: Skin/Abscess/Foreign Body Stated complaint: Severe cellulitis and multiple ulcers Time Seen by Provider: 07/17/21 19:10 Source: patient Mode of arrival: ambulatory Limitations: no limitations History of Present Illness: 46-year-old female who states that she has had swelling and redness to her bilateral legs for months with getting much worse over the last 3 to 4 days she is up and following with anyone and saw someone today who recommended her to come to the ER for the cellulitis she denies any injuries denies any fevers she does have bilateral pain. She denies any worsening improving factors. Associated symptoms: Deny chills, fever(s), nausea or vomiting Review of Systems Const: Denies: fever(s), chills, body aches or change in appetite Eyes: Denies: blurry vision or eye discomfort ENMT: Denies: throat pain or dental pain Card: Denies: chest pain Resp: Denies: dyspnea GI: Denies: abdominal pain, nausea, vomiting or diarrhea : Denies: dysuria Musc: Denies: neck pain or back pain Skin/Breast: Reports: erythema and lesions Neuro: Denies: headache(s) Psych: Denies: depression Zay/Lymph: Denies: easy bruising All/Imm: Denies: urticaria Physical Exam Const: COMMON NORMALS: patient oriented x3 NUTRITIONAL APPEARANCE: obese HENMT: COMMON NORMALS: normocephalic and atraumatic HEAD & SCALP: normocephalic and atraumatic Eye: COMMON NORMALS: Equal, round and reactive pupils present and EOMs intact bilaterally PUPIL: Yes Equal, round and reactive pupils present Neck/C-Spine: COMMON NORMALS: full ROM and supple Chest: COMMONS NORMALS: normal inspection of the chest and normal palpation of entire chest wall Resp: COMMON NORMALS: normal respiratory effort, No retractions, No use of accessory muscles and clear to auscultation bilaterally AUSCULTATION: clear to auscultation bilaterally Cardio: COMMON NORMALS: regular rate, regular rhythm and No murmurs present (Cardio) RATE: regular rate RHYTHM: regular rhythm GI: COMMON NORMALS: Normal to inspection, nondistended, normoactive bowel sounds present, Soft to palpation, non-tender and no masses PALPATION: Yes Soft to palpation Extremity: COMMON NORMALS: full ROM NARRATIVE EXTREMITY EXAM: Erythema to bilateral legs much worse to the left with oozing foul-smelling no abscess noted Neuro: COMMON NORMALS: patient oriented x3, moves all extremities and no focal motor deficits Psych: COMMON NORMALS: mental status grossly normal, Normal thought process present and cooperative THOUGHT PROCESS: Normal thought process present Skin: COMMON NORMALS: no rashes or lesions noted and no wounds GENERAL SKIN EXAM: no rashes or lesions noted Course Vital Signs: Vital signs: Vital Signs Temperature 98.1 F 07/17/21 16:12 Pulse Rate 89 07/17/21 16:12 Respiratory Rate 14 07/17/21 16:12 Blood Pressure 140/88 07/17/21 16:12 Pulse Oximetry 99 07/17/21 16:12 MDM - Skin/Abscess/Foreign Bdy Medicial Decision Making Patient presents here with cellulitis likely venous stasis as well has been chronic in nature no signs of necrotizing fasciitis her white count here is normal she been afebrile we will start antibiotics and get her follow-up with wound care. Lab Data : 07/17/21 15:44 07/17/21 15:44 Laboratory Results WBC 5.1 10^3/uL (4.0-10.0) 07/17/21 15:44 RBC 5.45 10^6/uL (4.1-5.3) H 07/17/21 15:44 Hgb 12.8 g/dL (11.5-15.3) 07/17/21 15:44 Hct 43.3 % (37.0-47.0) 07/17/21 15:44 MCV 79.4 fl (81-99) L 07/17/21 15:44 MCH 23.5 pg (28.0-34.0) L 07/17/21 15:44 MCHC 29.6 g/dL (30.0-36.0) L 07/17/21 15:44 RDW 16.1 % (12.1-15.1) H 07/17/21 15:44 Plt Count 273 10^3/cmm (130-400) 07/17/21 15:44 MPV 9.3 fL (7.4-10.4) 07/17/21 15:44 Neut % (Auto) 57.1 % 07/17/21 15:44 Lymph % (Auto) 21.9 % 07/17/21 15:44 [place] % (Auto) 12.5 % 07/17/21 15:44 Eos % (Auto) 7.3 % 07/17/21 15:44 Baso % (Auto) 1.0 % 07/17/21 15:44 Neut # (Auto) 2.89 10^3/uL (1.8-7.7) 07/17/21 15:44 Lymph # (Auto) 1.1 10^3/uL (0.8-4.8) 07/17/21 15:44 [place] # (Auto) 0.6 10^3/uL (0.2-0.9) 07/17/21 15:44 Eos # (Auto) 0.4 10^3/uL (0.0-0.8) 07/17/21 15:44 Baso # (Auto) 0.1 10^3/uL (0.0-0.1) 07/17/21 15:44 Nucleated RBC % (auto) 0 % 07/17/21 15:44 Nucleated RBCs # 0.0 /100WBC 07/17/21 15:44 Sodium 136 mmol/L (136-145) 07/17/21 15:44 Potassium 4.0 mmol/L (3.5-5.1) 07/17/21 15:44 Chloride 100 mmol/L (98-107) 07/17/21 15:44 Carbon Dioxide 25 mmol/L (22-29) 07/17/21 15:44 Anion Gap 15.0 (5-19) 07/17/21 15:44 BUN 13 mg/dL (6-20) 07/17/21 15:44 Creatinine 0.6 mg/dL (0.5-0.9) 07/17/21 15:44 GFR Calculation 107.6 mL/min (90-130) 07/17/21 15:44 Glucose 85 mg/dL (65-115) 07/17/21 15:44 Calculated Osmolality 281 mOsm/kg (285-295) L 07/17/21 15:44 Lactic Acid 0.9 mmol/L (0.5-2.2) 07/17/21 15:44 Calcium 8.6 mg/dL (8.5-10.5) 07/17/21 15:44 Total Bilirubin 0.5 mg/dL (0.15-1.2) 07/17/21 15:44 AST 19 U/L (0-32) 07/17/21 15:44 ALT 13 U/L (0-33) 07/17/21 15:44 Alkaline Phosphatase 177 IU/L (35-105) H 07/17/21 15:44 Total Protein 8.3 g/dL (6.6-8.7) 07/17/21 15:44 Albumin 3.8 g/dL (3.5-5.2) 07/17/21 15:44 Globulin 4.5 g/dL (1.3-4.6) 07/17/21 15:44 Discharge Plan Discharge Patient Disposition: Home Clinical Impression: Cellulitis Qualifiers: Site of cellulitis: extremity Site of cellulitis of extremity: lower extremity Laterality: unspecified laterality Qualified Code(s): L03.119 - Cellulitis of unspecified part of limb Condition: Stable Prescriptions: New clindamycin HCl 300 mg capsule 300 mg PO Q8H 7 Days Qty: 21 0RF No Action potassium chloride 10 mEq tablet extended release 10 meq PO QAM 0RF aspirin 81 mg Tablet,Delayed Release (Dr/Ec) 81 mg PO DAILY PRN (Reason: Pain) 0RF tramadol 50 mg tablet 50 mg PO Q6H PRN (Reason: Pain) 0RF Tylenol Extra Strength 500 mg Tablet 1,000 mg PO PRN 0RF furosemide 20 mg tablet 20 mg PO QAM 0RF Excedrin Migraine 250-250-65 mg Tablet 2 tab PO PRN 0RF dexamethasone 6 mg tablet 6 mg PO DAILY Qty: 5 0RF Celebrex 100 mg capsule 100 mg PO BID Qty: 20 0RF Discharge Orders: Discharge ED (Routine); Ordered 07/17/21 Ordered By: Andrzej Howell Referrals: WOUND CARE CLINIC, [Staff Physician] - 1-3 days Discharge Diet: Advance as tolerated Discharge Activity: Resume usual activity Patient Instructions: Cellulitis (ED) Coding Level of Care Code ED Behavioral Consultant for [facility] Fwd Exam Comprehensive
[2021-07-17 19:56] LABS: Basophils # 0.1 10^3/uL (0.0-0.1); Eosinophils # 0.4 10^3/uL (0.0-0.8); Eosinophils % 7.3 %; Hematocrit 43.3 % (37.0-47.0); Hemoglobin 12.8 g/dL (11.5-15.3); Lymphocytes # 1.1 10^3/uL (0.8-4.8); Lymphocytes % 21.9 %; Mean Corpuscular HGB Conc 29.6 g/dL (30.0-36.0); Mean Corpuscular Hemoglobin 23.5 pg (28.0-34.0); Mean Corpuscular Volume 79.4 fl (81-99); Mean Platelet Volume 9.3 fL (7.4-10.4); Monocytes # 0.6 10^3/uL (0.2-0.9); Monocytes % 12.5 %; Neutrophils # 2.89 10^3/uL (1.8-7.7); Neutrophils % 57.1 %; Nucleated Red Blood Cells % 0 %; Platelet Count 273 10^3/cmm (130-400); Red Blood Count 5.45 10^6/uL (4.1-5.3); Red Cell Distribution Width 16.1 % (12.1-15.1); White Blood Count 5.1 10^3/uL (4.0-10.0)
[2021-07-17] MEDS: vancomycin 1,000 MG in sodium chloride 0.9% 250 ML 250 MG IV (20:00)
[2021-07-17 20:14] LABS: Lactic Sepsis W/Reflex 0.9 mmol/L (0.5-2.2)
[2021-07-17 20:16] LABS: Alanine Aminotransferase 13 U/L (0-33); Albumin Level 3.8 g/dL (3.5-5.2); Alkaline Phosphatase 177 IU/L (35-105); Aspartate Amino Transferase 19 U/L (0-32); Blood Urea Nitrogen 13 mg/dL (6-20); Calcium 8.6 mg/dL (8.5-10.5); Carbon Dioxide 25 mmol/L (22-29); Chloride 100 mmol/L (98-107); Globulin 4.5 g/dL (1.3-4.6); Glomerular Filtration Rate 107.6 mL/min (90-130); Glucose 85 mg/dL (65-115); Osmolality Calculated 281 mOsm/kg (285-295); Sodium 136 mmol/L (136-145); Total Bilirubin 0.5 mg/dL (0.15-1.2); Total Protein 8.3 g/dL (6.6-8.7)
--- NOTE | 2021-07-19 14:41 | DCPLANNER ---
Addendum entered by Taylor Murphy 08/02/21 14:34: Patient had a follow up appointment scheduled with Wound Care -patient did attend appointment. Original Note: first assistant manager had message to schedule a follow up appointment for patient with Wound Care. first assistant manager called Wound Care, spoke with Myrna, gave clinic patients information. A follow up appointment was scheduled for Saturday, July 24, 2021 at 2:[address] Luciano. first assistant manager called phone number [phone], unable to speak with patient, a voicemail was left for patient to return outpatient case manager phone call. first assistant manager also called [phone], unable to speak with anyone and unable to leave a voicemail.
== END 2021-07-17 22:37 | disposition home or self-care (01) ==
PROVIDERS: Nurse Practitioner Family; Emergency Provider Emergency Medicine
DX: L03.116 Cellulitis of left lower limb (principal); L03.115 Cellulitis of right lower limb; Z79.82 Long term (current) use of aspirin
CPT/HCPCS: 80053; 83605; 85025; 87040; 87077; 87205; 96365; 99283; J3370; J7050

== ENCOUNTER 2021-07-27 08:21 | Outpatient (CLI) | payer OTHER, SELFPAY | END 2021-07-27 08:22 | disposition home or self-care (01) | LOC: WOUND 08:21 | PROVIDERS: Visit Provider Surgery | DX: L03.116 Cellulitis of left lower limb (principal); L03.115 Cellulitis of right lower limb | CPT/HCPCS: 11042; 99213; A6252 ==

== ENCOUNTER 2021-07-31 14:32 | Outpatient (CLI) | payer OTHER, SELFPAY | END 2021-07-31 14:33 | disposition home or self-care (01) | LOC: WOUND 14:32 | PROVIDERS: Visit Provider Thoracic Surgery (Cardiothoracic Vascular Surgery) | DX: I87.2 Venous insufficiency (chronic) (peripheral) (principal); L97.822 Non-pressure chronic ulcer of other part of left lower leg with fat layer exposed; L03.116 Cellulitis of left lower limb; L03.115 Cellulitis of right lower limb | CPT/HCPCS: 29581; A6252 ==

== ENCOUNTER 2021-08-03 09:38 | Outpatient (CLI) | payer OTHER, SELFPAY | END 2021-08-03 09:39 | disposition home or self-care (01) | LOC: WOUND 09:39 | PROVIDERS: Visit Provider Surgery | DX: I87.2 Venous insufficiency (chronic) (peripheral) (principal); L97.822 Non-pressure chronic ulcer of other part of left lower leg with fat layer exposed; L03.116 Cellulitis of left lower limb; L03.115 Cellulitis of right lower limb | CPT/HCPCS: 11042; A6253 ==

== ENCOUNTER 2021-08-10 09:50 | Outpatient (CLI) | payer OTHER, SELFPAY | END 2021-08-10 09:51 | disposition home or self-care (01) | LOC: WOUND 09:51 | PROVIDERS: Visit Provider Surgery | DX: I87.2 Venous insufficiency (chronic) (peripheral) (principal); I96 Gangrene, not elsewhere classified; L97.822 Non-pressure chronic ulcer of other part of left lower leg with fat layer exposed; L03.031 Cellulitis of right toe; L03.032 Cellulitis of left toe | CPT/HCPCS: 11042; A6252 ==

== ENCOUNTER 2021-08-10 10:23 | Outpatient (CLI) | payer OTHER, SELFPAY ==
--- NOTE | 2021-08-10 10:51 | USCV_ITS ---
Quynh Spangler Age: 46 Gender: F : 1975 Exam Date: 08/10/2021 11:03 Ordering Phys: Holland Ramos MD Technologist: Marco A Chang [place] [facility] [place] Indication: dvt PROCEDURES: Venous duplex imaging was performed in only the left lower extremity. The following venous structures were evaluated: common femoral vein, profunda vein, proximal portion of the greater saphenous vein, superficial femoral vein, and the popliteal vein. In addition, the posterior tibial and peroneal trunk were evaluated. Serial compression, augmentation maneuvers, and spectral Doppler flow evaluation were performed. FINDINGS: Normal 2-D Doppler and augmentation and compressibility throughout the lower extremity venous structures. Additional imaging through the proximal calf veins also reveals no thrombus. Limited evaluation of the greater saphenous vein is patent with no thrombus. This was a very technically difficult study due to patient body habitus. Prominent left inguinal lymph nodes. There is subcutaneous left lower extremity edema noted. CONCLUSIONS No DVT left lower extremity. Technically difficult exam. Subcutaneous edema. Dr. Kary Manning DO (Electronically Signed) Final Date: 10 August 2021 12:15 S
== END 2021-08-10 10:24 | disposition home or self-care (01) ==
PROVIDERS: Visit Provider Surgery
DX: L97.822 Non-pressure chronic ulcer of other part of left lower leg with fat layer exposed (principal); L03.116 Cellulitis of left lower limb; M79.662 Pain in left lower leg; R60.0 Localized edema
CPT/HCPCS: 93971

== ENCOUNTER 2021-08-17 12:33 | Outpatient (CLI) | payer OTHER, SELFPAY | END 2021-08-17 12:34 | disposition home or self-care (01) | LOC: WOUND 12:33 | PROVIDERS: Visit Provider Surgery | DX: I87.2 Venous insufficiency (chronic) (peripheral) (principal); L97.822 Non-pressure chronic ulcer of other part of left lower leg with fat layer exposed | CPT/HCPCS: 11042; A6252 ==

== ENCOUNTER 2021-08-30 07:20 | Outpatient (CLI) | payer OTHER, SELFPAY ==
--- NOTE | 2021-08-30 07:32 | USCV_ITS ---
Aníbal Quynh Age: 46 Gender: F : 1975 Exam Date: 08/30/2021 07:42 Ordering Phys: Holland Ramos MD Technologist: Exam Location: [facility] [place] Indication: HISTORY: PROCEDURES: Bilateral duplex Venous Insufficiency study of the Deep and Superficial systems was carried out according to normal protocol with the patient in supine positon for deep system and dependent position for the superficial system. FINDINGS: All deep veins demonstrated compressibility without evidence of intraluminal thrombus or increased echogenicity. Spectral analysis of Doppler signals demonstrates normal response to compression maneuvers indicating patency without obstruction. Reflux determinations were made with the patient in the dependent position, the weight being on the contralateral leg. There is massive reflux on both side the veins are very superficial and tortous not good canidate for ablation CONCLUSIONS 1. No evidence of DVT in the above-mentioned identifiable veins. 2. No significant reflexes in the deep veins. 3. Significant venous reflux of greater than 500 ms were noted at the saphenofemoral junction, distal to the saphenofemoral junction, proximal and mid segments of the greater saphenous veins on the right side. The segments were found to be greater than 1 cm deep from the surface and measuring anywhere from 0.8 to 1.1 cm in diameter 4. Significant venous reflux greater than 500 ms were noted at the saphenofemoral junction, distal to the saphenofemoral junction, proximal, mid and below-knee segments of the greater saphenous vein on the left side. But these venous segments were less than 1 cm from the surface. They were measuring anywhere from 0.44 to 1.23 cm in diameter 5. Features of edema/fluid retention were noted in the below-knee area bilaterally For the details of the venous dimensions, depth from the surface and the reflux times, please refer to the attached report Dr Dudley Torrez MD [facility] (Electronically Signed) Final Date: 31 August 2021 10:32 S
== END 2021-08-30 07:21 | disposition home or self-care (01) ==
PROVIDERS: Visit Provider Surgery
DX: L03.116 Cellulitis of left lower limb (principal); L97.929 Non-pressure chronic ulcer of unspecified part of left lower leg with unspecified severity; M79.605 Pain in left leg
CPT/HCPCS: 93970

== ENCOUNTER 2021-09-28 10:59 | Outpatient (CLI) | payer OTHER, SELFPAY ==
--- NOTE | 2021-09-28 11:10 | USCV_ITS ---
Quynh Spangler Age: 46 Gender: F : 1975 Exam Date: 09/28/2021 11:22 Ordering Phys: Holland Ramos MD Technologist: KRISHNA Exam Location: [facility] [place] Indication: DM ULCER Risk Factors: Previous Vascular Surgery: RIGHT LEFT Waveform Velocity (cm/s) Velocity (cm/s) Waveform Triphasic 143.1 Iliac Prox 137.0 Triphasic Triphasic 158.8 Iliac Mid 124.2 Triphasic Triphasic 120.9 Iliac Distal 127.7 Triphasic Triphasic 120.9 COMPLETION MANAGER 146.0 Triphasic Triphasic 161.7 SFA Prox 141.4 Triphasic Triphasic 148.5 SFA Mid 176.7 Triphasic Triphasic 174.8 SFA Dist 204.9 Triphasic Triphasic 60.6 POP 120.3 Triphasic Triphasic 101.8 EDUCATIONAL/DEVELOPMENT ASSISTANT 54.4 Triphasic Triphasic 113.6 DPA 104.9 Triphasic FINDINGS UNABLE TO OBTAIN BILAT JULIA'S DUE TO NON COMPRESSIBLE Normal arterial Doppler waveforms bilaterally Near normal Doppler flow velocities CONCLUSIONS No significant arterial obstruction based on the above findings Dr Dudley Torrez MD [facility] (Electronically Signed) Final Date: 30 Sep 2021 21:47 S
== END 2021-09-28 11:00 | disposition home or self-care (01) ==
PROVIDERS: Visit Provider Surgery
DX: L97.929 Non-pressure chronic ulcer of unspecified part of left lower leg with unspecified severity (principal); L03.116 Cellulitis of left lower limb; M79.605 Pain in left leg
CPT/HCPCS: 93925

== ENCOUNTER 2021-10-26 09:49 | Emergency (ER) | payer OTHER, SELFPAY ==
[2021-10-26 10:45] VITALS: BP 158/90; PULSE 79; RESP 16; TEMP 36.9; O2SAT 98; BMI 45.6
--- NOTE | 2021-10-26 11:54 | ED_ITS ---
HPI - General Adult General: Chief complaint: Ear Stated complaint: left ear pain Time Seen by Provider: 10/26/21 11:25 History of Present Illness: 46-year-old female presents emergency room with complaints of left ear ache x2 days. Patient denies any history of diabetes or swimming. Patient tells me that her tooth was hurting 2 days ago and since then has had been having ear pain and left-sided face pain. Patient denies any vision changes, swelling of the face, drainage from the ear, or mastoid area pain. Patient has any fever or chills, trismus, difficulty swallowing or drooling or shortness of breath. Onset:2 days ago Duration:2 days Location:home Severity:mild Associated symptoms: Deny chest pain, dyspnea, nausea, rash, palpitations or vomiting Review of Systems Const: Denies: fever(s) or chills Eyes: Denies: change in vision ENMT: Reports: mouth pain (+L lower jaw tooth pain) and other (+L ear pain) Card: Denies: chest pain or palpitations Resp: Denies: dyspnea or non-productive cough GI: Denies: abdominal pain, nausea, vomiting or diarrhea : Denies: dysuria Musc: Denies: extremity pain Skin/Breast: Denies: rash or new lesions Neuro: Denies: weakness in extremities Psych: Reports: other (Normal mood) Zay/Lymph: Denies: easy bruising PFS ED PFSH: Medical History No pertinent past medical history Social History Smoking and tobacco status: never smoked Alcohol intake: never Substance/Drug Use: never Physical Exam Const: COMMON NORMALS: alert HENMT: COMMON NORMALS: atraumatic HEAD & SCALP: atraumatic MOUTH: moist mucous membranes not abnormal OTHER: TM intact L side NO EAC edema NO mastoid tenderness NO palpable fluctuance of the L face Mild L sided tooth #20 tenderness to palpation Eye: COMMON NORMALS: EOMs intact bilaterally and conjunctivae normal CONJUNCTIVA: Yes conjunctivae normal Neck/C-Spine: COMMON NORMALS: full ROM and supple Resp: COMMON NORMALS: normal respiratory effort and clear to auscultation bilaterally AUSCULTATION: clear to auscultation bilaterally Cardio: COMMON NORMALS: regular rate RATE: regular rate GI: COMMON NORMALS: Soft to palpation and non-tender PALPATION: Yes Soft to palpation Extremity: COMMON NORMALS: full ROM Neuro: SENSORIUM/ORIENTATION: Yes alert MOTOR EXAM: No Abnormal motor strength present and Other motor observations present (no focal motor deficits) Psych: COMMON NORMALS: speech normal SPEECH: Yes normal speech MOOD & AFFECT: Yes euthymic mood Course Vital Signs: Vital signs: Vital Signs Temperature 98.5 F 10/26/21 10:45 Pulse Rate 79 10/26/21 10:45 Respiratory Rate 16 10/26/21 10:45 Blood Pressure 158/90 10/26/21 10:45 Pulse Oximetry 98 10/26/21 10:45 MDM - General Adult Medical Decision Making 46-year-old female presenting to the emergency room with complaints of left- sided tooth pain and left-sided ear pain. On exam, patient has a tooth #20 tenderness to palpation without surrounding periapical fluctuance. Patient has no signs of trismus. No left-sided facial swelling. Left ear exam is unremarkable. No mastoid tenderness. This is concerning for possible early infection. Patient will be discharged home with antibiotics with close followup with PCP Rx augmentin BID for tooth infection Disposition: Discharge. Patient counseled regarding diagnostic impression, treatment plan. Patient given ED strict return precautions to return for continuation, worsening, or development of new symptoms. Instructed to f/u w/ PCP regarding symptoms today. Patient verbalized understanding. Discharge Plan Discharge Patient Disposition: Home Clinical Impression: Ear ache, Tooth ache, Dental infection Condition: Stable Prescriptions: New acetaminophen 500 mg tablet 500 mg PO Q6H PRN (Reason: pain) 5 Days Qty: 20 0RF amoxicillin-pot clavulanate 875-125 mg tablet 1 tab PO BID 7 Days Qty: 14 0RF No Action potassium chloride 10 mEq tablet extended release 10 meq PO QAM 0RF aspirin 81 mg Tablet,Delayed Release (Dr/Ec) 81 mg PO DAILY PRN (Reason: Pain) 0RF tramadol 50 mg tablet 50 mg PO Q6H PRN (Reason: Pain) 0RF Tylenol Extra Strength 500 mg Tablet 1,000 mg PO PRN 0RF furosemide 20 mg tablet 20 mg PO QAM 0RF Excedrin Migraine 250-250-65 mg Tablet 2 tab PO PRN 0RF dexamethasone 6 mg tablet 6 mg PO DAILY Qty: 5 0RF Celebrex 100 mg capsule 100 mg PO BID Qty: 20 0RF Discharge Orders: Discharge ED (Routine); Ordered 10/26/21 Ordered By: Oma Desai Discharge Diet: Advance as tolerated Discharge Activity: Increase activity as tolerated Patient Instructions: Cavity Preventive (For the teeth or gums) Activity Restrictions/Additional Instructions: Please take your antibiotics as instructed. Watch out for signs of skin changes/redness, mouth redeness or swelling, nausea/vomiting, diarrhea, blood in the urine or any new or concerning complaints. Come back if you have any new or concerning issues. Coding Level of Care Code ED Network Account Manager for Chg Fwd Exam Comprehensive
== END 2021-10-26 12:11 | disposition home or self-care (01) ==
PROVIDERS: Emergency Provider Emergency Medicine
DX: K08.89 Other specified disorders of teeth and supporting structures (principal); H92.02 Otalgia, left ear; K04.7 Periapical abscess without sinus
CPT/HCPCS: 99283

== ENCOUNTER 2022-01-21 15:10 | Emergency (ER) | payer OTHER, SELFPAY ==
[2022-01-21 15:21] VITALS: BP 123/77; PULSE 96; RESP 16; TEMP 37.2; O2SAT 96; BMI 45.4
--- NOTE | 2022-01-21 15:40 | XRR_ITS ---
PROCEDURE INFORMATION: Exam: XR Right Knee Exam date and time: 01/21/2022 4:05 PM Age: 46 years old Clinical indication: Swelling or effusion of joint; Patient HX: Redness, pain, and swelling in right knee started 2 days ago; Additional info: Knee pain/swelling TECHNIQUE: Imaging protocol: Radiologic exam of the Right knee. Views: 3 views. COMPARISON: No relevant prior studies available. FINDINGS: Bones/joints: Narrowing of the medial knee compartment. Degenerative spurring in the lateral tibial condyle, medial femoral and tibial condyles, and patellofemoral joint. No visible effusion. Soft tissues: Normal. Obesity. XR/XR knee RT 3V* [id number] IMPRESSION: No acute finding.
--- NOTE | 2022-01-21 16:13 | USR_ITS ---
PROCEDURE INFORMATION: Exam: US Duplex Right Lower Extremity Veins, Limited Exam date and time: 01/21/2022 4:26 PM Age: 46 years old Clinical indication: Pain; Leg, lower; Right; Additional info: Redness/swelling/pain TECHNIQUE: Imaging protocol: Real-time Duplex ultrasound of the Right Lower Extremity with 2-D king scale, color Doppler flow and spectral waveform analysis with image documentation. Limited exam was focused on the right lower extremity veins. COMPARISON: CR XR knee RT 3V* [id number] 01/21/2022 4:05 PM FINDINGS: Right deep veins: Unremarkable. The common femoral, femoral, proximal profunda femoral and popliteal veins are patent without thrombus. Normal Doppler waveforms. Normal compressibility and/or augmentation response. The distal femoral vein could not be visualized. Right superficial veins: Unremarkable. Saphenofemoral junction is patent without thrombus. Soft tissues: Subcutaneous soft tissue edema in the right lower extremity. Prominent right inguinal lymph nodes are most likely reactive.. US/[place] [id number] IMPRESSION: No evidence of deep vein thrombosis.
--- NOTE | 2022-01-21 16:14 | ED_ITS ---
Documented by User: [email or web address] Triplett 01/22/22 10:08 HPI - Extremity Problem General: Chief complaint: General Medical Stated complaint: right knee swelling/pain Time Seen by Provider: 01/21/22 15:54 Source: patient Mode of arrival: ambulatory Limitations: no limitations History of Present Illness: Patient is a 46-year-old female presents to ED today with a complaint of right knee pain and swelling. She has not had any known injury or trauma to the knee. Patient has a history of bilateral lymphedema. She does feel like maybe her right lower extremity is more swollen than normal. Her left leg is wrapped. She overall is a fairly poor historian. After asking patient to pull up her pant leg so I can evaluate the extremity she is noted to have redness and warmth to the knee and lower leg. Patient seems to think that this is new but again is a fairly poor historian and cannot really seem to localize when she thinks the redness may have started. She is not having any chest pain, shortness of breath, difficulty breathing. MD Complaint: extremity pain, extremity swelling, joint swelling and joint pain Onset (ago): day(s) Pain Consistency: constant Location: right and lower extremity Radiation: none Relieving factors: nothing Exacerbating factors: nothing Associated symptoms: Reports no associated symptoms; Deny chest pain or fever(s) Review of Systems Const: Denies: fever(s), chills, body aches, fatigue or malaise Card: Reports: edema (chronic lymphedema); Denies: chest pain, palpitations, irregular heart rhythm, lightheadedness, syncope or pre-syncope Resp: Denies: dyspnea, pain on inspiration or hemoptysis GI: Denies: abdominal pain Musc: Reports: extremity pain, extremity swelling and joint pain (R knee); Denies: neck pain or back pain Neuro: Denies: headache(s), numbness in extremities, weakness in extremities or sensory changes PFS ED PFSH: Medical History No pertinent past medical history Social History Smoking and tobacco status: never smoked Alcohol intake: never Physical Exam Const: COMMON NORMALS: no acute distress, patient oriented x3, no limitations and alert GENERAL APPEARANCE: cooperative NUTRITIONAL APPEARANCE: obese morbidly obese ORIENTATION/CONSCIOUSNESS: Yes awake, Yes oriented to person, Yes oriented to place and Yes oriented to time Resp: COMMON NORMALS: normal respiratory effort and clear to auscultation bilaterally AUSCULTATION: clear to auscultation bilaterally Cardio: COMMON NORMALS: regular rate and regular rhythm RATE: regular rate RHYTHM: regular rhythm Extremity: GENERAL: Yes normal exam except as noted OTHER: significant bilateral LE (R>L) lymphedema; L LE is wrapped; R LE with erythema consistent with cellulitis mainly to anterior lower leg/knee; no areas of circum ferential cellulitis; no lymphangitic streaking; full ROM of knee joint and no concerns for septic joint at this time Neuro: COMMON NORMALS: patient oriented x3, moves all extremities, no focal motor deficits and no sensory deficits noted SENSORIUM/ORIENTATION: Yes alert, Yes oriented to person, Yes oriented to place and Yes oriented to time Course ED course: Care transferred to JAC Arthur pending completion/results of labs. Vital Signs: Vital signs: Vital Signs Temperature 98.9 F 01/21/22 15:21 Pulse Rate 80 01/21/22 19:41 Respiratory Rate 20 H 01/21/22 19:41 Blood Pressure 118/72 01/21/22 19:41 Pulse Oximetry 98 01/21/22 19:41 Oxygen Delivery Me thod 01/21/22 15:21 MDM - Extremity (Nontraumatic) Lab Data : 01/21/22 17:10 01/21/22 17:10 Radiology Impressions Knee X-Ray 01/21/22 15:40 IMPRESSION: No acute finding. Venous Duplex 01/21/22 16:13 IMPRESSION: No evidence of deep vein thrombosis. Laboratory Results WBC 7.3 10^3/uL (4.0-10.0) 01/21/22 17:10 RBC 4.51 10^6/uL (4.1-5.3) 01/21/22 17:10 Hgb 11.5 g/dL (11.5-15.3) 01/21/22 17:10 Hct 36.8 % (37.0-47.0) L 01/21/22 17:10 MCV 81.6 fl (81-99) 01/21/22 17:10 MCH 25.5 pg (28.0-34.0) L 01/21/22 17:10 MCHC 31.3 g/dL (30.0-36.0) 01/21/22 17:10 RDW 15.3 % (12.1-15.1) H 01/21/22 17:10 Plt Count 232 10^3/cmm (130-400) 01/21/22 17:10 MPV 11.4 fL (7.4-10.4) H 01/21/22 17:10 Neut % (Auto) 74.6 % 01/21/22 17:10 Lymph % (Auto) 12.7 % 01/21/22 17:10 Manati % (Auto) 11.2 % 01/21/22 17:10 Eos % (Auto) 0.7 % 01/21/22 17:10 Baso % (Auto) 0.3 % 01/21/22 17:10 Neut # (Auto) 5.47 10^3/uL (1.8-7.7) 01/21/22 17:10 Lymph # (Auto) 0.9 10^3/uL (0.8-4.8) 01/21/22 17:10 Manati # (Auto) 0.8 10^3/uL (0.2-0.9) 01/21/22 17:10 Eos # (Auto) 0.1 10^3/uL (0.0-0.8) 01/21/22 17:10 Baso # (Auto) 0.0 10^3/uL (0.0-0.1) 01/21/22 17:10 Nucleated RBC % (auto) 0 % 01/21/22 17:10 Nucleated RBCs # 0.0 /100WBC 01/21/22 17:10 Sodium 130 mmol/L (136-145) L 01/21/22 17:10 Potassium 3.6 mmol/L (3.5-5.1) 01/21/22 17:10 Chloride 92 mmol/L (98-107) L 01/21/22 17:10 Carbon Dioxide 26 mmol/L (22-29) 01/21/22 17:10 Anion Gap 15.6 (5-19) 01/21/22 17:10 BUN 13 mg/dL (6-20) 01/21/22 17:10 Creatinine 0.7 mg/dL (0.5-0.9) 01/21/22 17:10 GFR Calculation 90.1 mL/min (90-130) 01/21/22 17:10 Glucose 85 mg/dL (65-115) 01/21/22 17:10 Calculated Osmolality 269 mOsm/kg (285-295) L 01/21/22 17:10 Calcium 8.7 mg/dL (8.5-10.5) 01/21/22 17:10 Total Bilirubin 0.6 mg/dL (0.15-1.2) 01/21/22 17:10 AST 19 U/L (0-32) 01/21/22 17:10 ALT 10 U/L (0-33) 01/21/22 17:10 Alkaline Phosphatase 163 U/L (35-105) H 01/21/22 17:10 C-Reactive Protein 175.6 mg/L (0.0-4.9) H 01/21/22 17:10 Total Protein 8.0 g/dL (6.6-8.7) 01/21/22 17:10 Albumin 3.2 g/dL (3.5-5.2) L 01/21/22 17:10 Globulin 4.8 g/dL (1.3-4.6) H 01/21/22 17:10 Discharge Plan Discharge Patient Disposition: Home Clinical Impression: Cellulitis of leg, right, Lymphedema Condition: Stable Prescriptions: New cephalexin 500 mg capsule 500 mg PO TID 7 Days Qty: 21 0RF potassium chloride 20 mEq tablet extended release 20 meq PO DAILY Qty: 30 0RF furosemide 20 mg tablet 20 mg PO DAILY Qty: 30 0RF No Action acetaminophen [Tylenol Extra Strength] 500 mg Tablet 1,000 mg PO PRN PRN (Reason: Pain) Excedrin Extra Strength 250-250-65 mg Tablet 1 tab PO Q6H PRN (Reason: Headache) Discharge Orders: Discharge ED (Routine); Ordered 01/21/22 Ordered By: Urbano Turner Discharge Diet: Usual diet Discharge Activity: Increase activity as tolerated Patient Instructions: Cellulitis (ED) Activity Restrictions/Additional Instructions: Home and rest. Take medications as directed. Elevate lower extremity as tolerated. Drink plenty of water with medication. Follow-up with primary care for further instruction. Return to ER for new concerns. Sign Out Sign Out Data: Patient Sign Out occurred on 01/21/22 at 17:29. Patient's care was discussed, and care was transferred from to Urbano Turner. Coding Level of Care Code ED Mechanical Developer Prover for Gretcheng Fwd Exam Problem Focused Documented by User: JAC Young 01/21/22 18:21 HPI - Extremity Problem General: Chief complaint: General Medical Stated complaint: right knee swelling/pain Time Seen by Provider: 01/21/22 15:54 [facility] ED PFSH: Medical History No pertinent past medical history Social History Smoking and tobacco status: never smoked Alcohol intake: never Course Vital Signs: Vital signs: Vital Signs Temperature 98.9 F 01/21/22 15:21 Pulse Rate 80 01/21/22 19:41 Respiratory Rate 20 H 01/21/22 19:41 Blood Pressure 118/72 01/21/22 19:41 Pulse Oximetry 98 01/21/22 19:41 Oxygen Delivery Me thod 01/21/22 15:21 MDM - Extremity (Nontraumatic) Medical Decision Making 46-year-old female comes in today with complaints of right lower extremity pain and discomfort. Patient reports swelling and redness starting at the knee going down the right lower leg. On exam we note induration and redness to the right lower extremity. Distal pulses are intact. Prompt capillary refill is noted. Respirations are even lungs are clear to auscultation vital signs are normal. Differential diagnosis includes DVT, peripheral vascular disease, lymphedema, cellulitis. CBC was unremarkable. CMP noted sodium 130 and chloride of 92. Patient potassium was also 3.6. CRP was 175. Patient will be treated for cellulitis with 1 g of Rocephin and cephalexin 503 times a day for 7 days to follow. Patient was also written some furosemide and potassium to help with her swelling of her lower extremities. Patient to follow-up with primary care in 2 to 3 days for recheck. Return to ER for new concerns such as high fever or nausea and vomiting. Lab Data : 01/21/22 17:10 01/21/22 17:10 Radiology Impressions Knee X-Ray 01/21/22 15:40 IMPRESSION: No acute finding. Venous Duplex 01/21/22 16:13 IMPRESSION: No evidence of deep vein thrombosis. Laboratory Results WBC 7.3 10^3/uL (4.0-10.0) 01/21/22 17:10 RBC 4.51 10^6/uL (4.1-5.3) 01/21/22 17:10 Hgb 11.5 g/dL (11.5-15.3) 01/21/22 17:10 Hct 36.8 % (37.0-47.0) L 01/21/22 17:10 MCV 81.6 fl (81-99) 01/21/22 17:10 MCH 25.5 pg (28.0-34.0) L 01/21/22 17:10 MCHC 31.3 g/dL (30.0-36.0) 01/21/22 17:10 RDW 15.3 % (12.1-15.1) H 01/21/22 17:10 Plt Count 232 10^3/cmm (130-400) 01/21/22 17:10 MPV 11.4 fL (7.4-10.4) H 01/21/22 17:10 Neut % (Auto) 74.6 % 01/21/22 17:10 Lymph % (Auto) 12.7 % 01/21/22 17:10 Manati % (Auto) 11.2 % 01/21/22 17:10 Eos % (Auto) 0.7 % 01/21/22 17:10 Baso % (Auto) 0.3 % 01/21/22 17:10 Neut # (Auto) 5.47 10^3/uL (1.8-7.7) 01/21/22 17:10 Lymph # (Auto) 0.9 10^3/uL (0.8-4.8) 01/21/22 17:10 Manati # (Auto) 0.8 10^3/uL (0.2-0.9) 01/21/22 17:10 Eos # (Auto) 0.1 10^3/uL (0.0-0.8) 01/21/22 17:10 Baso # (Auto) 0.0 10^3/uL (0.0-0.1) 01/21/22 17:10 Nucleated RBC % (auto) 0 % 01/21/22 17:10 Nucleated RBCs # 0.0 /100WBC 01/21/22 17:10 Sodium 130 mmol/L (136-145) L 01/21/22 17:10 Potassium 3.6 mmol/L (3.5-5.1) 01/21/22 17:10 Chloride 92 mmol/L (98-107) L 01/21/22 17:10 Carbon Dioxide 26 mmol/L (22-29) 01/21/22 17:10 Anion Gap 15.6 (5-19) 01/21/22 17:10 BUN 13 mg/dL (6-20) 01/21/22 17:10 Creatinine 0.7 mg/dL (0.5-0.9) 01/21/22 17:10 GFR Calculation 90.1 mL/min (90-130) 01/21/22 17:10 Glucose 85 mg/dL (65-115) 01/21/22 17:10 Calculated Osmolality 269 mOsm/kg (285-295) L 01/21/22 17:10 Calcium 8.7 mg/dL (8.5-10.5) 01/21/22 17:10 Total Bilirubin 0.6 mg/dL (0.15-1.2) 01/21/22 17:10 AST 19 U/L (0-32) 01/21/22 17:10 ALT 10 U/L (0-33) 01/21/22 17:10 Alkaline Phosphatase 163 U/L (35-105) H 01/21/22 17:10 C-Reactive Protein 175.6 mg/L (0.0-4.9) H 01/21/22 17:10 Total Protein 8.0 g/dL (6.6-8.7) 01/21/22 17:10 Albumin 3.2 g/dL (3.5-5.2) L 01/21/22 17:10 Globulin 4.8 g/dL (1.3-4.6) H 01/21/22 17:10 Discharge Plan Discharge Patient Disposition: Home Clinical Impression: Cellulitis of leg, right, Lymphedema Condition: Stable Prescriptions: New cephalexin 500 mg capsule 500 mg PO TID 7 Days Qty: 21 0RF potassium chloride 20 mEq tablet extended release 20 meq PO DAILY Qty: 30 0RF furosemide 20 mg tablet 20 mg PO DAILY Qty: 30 0RF No Action acetaminophen [Tylenol Extra Strength] 500 mg Tablet 1,000 mg PO PRN PRN (Reason: Pain) Excedrin Extra Strength 250-250-65 mg Tablet 1 tab PO Q6H PRN (Reason: Headache) Discharge Orders: Discharge ED (Routine); Ordered 01/21/22 Ordered By: Urbano Turner Discharge Diet: Usual diet Discharge Activity: Increase activity as tolerated Patient Instructions: Cellulitis (ED) Activity Restrictions/Additional Instructions: Home and rest. Take medications as directed. Elevate lower extremity as tolerated. Drink plenty of water with medication. Follow-up with primary care for further instruction. Return to ER for new concerns. Sign Out Sign Out Data: Patient Sign Out occurred on 01/21/22 at 17:29. Patient's care was discussed, and care was transferred from to Urbano Turner. Coding Level of Care Code ED Mechanical Developer Prover for Goldy Fwspenser Exam Problem Focused
[2022-01-21 17:34] VITALS: BP 112/69; PULSE 86; O2SAT 97
[2022-01-21 17:43] LABS: Basophils % 0.3 %; Eosinophils # 0.1 10^3/uL (0.0-0.8); Eosinophils % 0.7 %; Hematocrit 36.8 % (37.0-47.0); Hemoglobin 11.5 g/dL (11.5-15.3); Lymphocytes # 0.9 10^3/uL (0.8-4.8); Lymphocytes % 12.7 %; Mean Corpuscular HGB Conc 31.3 g/dL (30.0-36.0); Mean Corpuscular Hemoglobin 25.5 pg (28.0-34.0); Mean Corpuscular Volume 81.6 fl (81-99); Mean Platelet Volume 11.4 fL (7.4-10.4); Monocytes # 0.8 10^3/uL (0.2-0.9); Monocytes % 11.2 %; Neutrophils # 5.47 10^3/uL (1.8-7.7); Neutrophils % 74.6 %; Nucleated Red Blood Cells % 0 %; Platelet Count 232 10^3/cmm (130-400); Red Blood Count 4.51 10^6/uL (4.1-5.3); Red Cell Distribution Width 15.3 % (12.1-15.1); White Blood Count 7.3 10^3/uL (4.0-10.0)
[2022-01-21 18:01] LABS: Alanine Aminotransferase 10 U/L (0-33); Albumin Level 3.2 g/dL (3.5-5.2); Alkaline Phosphatase 163 U/L (35-105); Anion Gap 15.6 (5-19); Aspartate Amino Transferase 19 U/L (0-32); Blood Urea Nitrogen 13 mg/dL (6-20); C Reactive Protein 175.6 mg/L (0.0-4.9); Calcium 8.7 mg/dL (8.5-10.5); Carbon Dioxide 26 mmol/L (22-29); Chloride 92 mmol/L (98-107); Globulin 4.8 g/dL (1.3-4.6); Glomerular Filtration Rate 90.1 mL/min (90-130); Glucose 85 mg/dL (65-115); Osmolality Calculated 269 mOsm/kg (285-295); Potassium 3.6 mmol/L (3.5-5.1); Sodium 130 mmol/L (136-145); Total Bilirubin 0.6 mg/dL (0.15-1.2)
[2022-01-21] MEDS: cefTRIAXone 1,000 MG in sodium chloride 0.9% (plus) 50 ML 100 MG IV (18:50)
[2022-01-21] MEDS: FUROsemide 10 mg/mL SDV 4mL 40 MG IVP (18:50)
[2022-01-21] MEDS: potassium chloride ER 20 mEq Tablet PO (18:50)
[2022-01-21 19:41] VITALS: BP 118/72; PULSE 80; RESP 20; O2SAT 98
== END 2022-01-21 19:42 | disposition home or self-care (01) ==
PROVIDERS: Physician Assistant; Emergency Provider Nurse Practitioner Family
DX: L03.115 Cellulitis of right lower limb (principal); I89.0 Lymphedema, not elsewhere classified
CPT/HCPCS: 73562; 80053; 85025; 86140; 87040; 93971; 96365; 96375; 99285; J0696; J1940

== ENCOUNTER 2022-11-12 20:45 | Emergency (ER) | payer OTHER, SELFPAY ==
--- NOTE | 2022-11-12 20:46 | USR_ITS ---
PROCEDURE INFORMATION: Exam: US Duplex Left Lower Extremity Veins, Limited Exam date and time: 11/12/2022 9:22 PM Age: 47 years old Clinical indication: Pain; Edema, localized; Lower extremity, bilateral; Leg, lower; Patient HX: Venous duplex imaging was performed in only the left lower extremity. The following venous structures were evaluated: Common femoral vein, profunda vein, proximal portion of the greater saphenous vein, superficial femoral vein, and the popliteal vein. In addition, the posterior tibial veins were evaluated. Serial compression, augmentation maneuvers, and spectral doppler flow evaluation were performed. The left greater saphenous vein, there common femoral vein, and the superficial femoral veins all demonstrate partial channel effect, incomplete compression, and poor augmentation. At 2-d gilbert scale imaging, obvious chronic mural thickening and partial channel effect are easily seen. Augmentation is poor at all levels. These findings are consistent with chronic changes from old dvt, and is consistent with her history of chronic venous insufficiency, gaiter zone pigmentation, and venous stasis ulceration, for which she has been a patient of the wound clinic for 1-2 years. While no obvious acute dvt is seen, [id number] dvt cannot be completely excluded. ; Additional info: Swelling TECHNIQUE: Imaging protocol: Real-time duplex ultrasound of the left extremity with 2-D king scale, color Doppler flow and spectral waveform analysis including responses to compression and other maneuvers (when performed) with image documentation. Limited exam focused on the left lower extremity veins. COMPARISON: CR XR foot LT min 3V* [id number] 05/11/2021 2:06 PM FINDINGS: Left deep veins: Left common femoral vein and superficial femoral vein demonstrate incomplete compressibility and poor augmentation with color blood, perhaps reflecting a chronic deep venous thrombosis, please correlate with history. An acute on chronic deep venous thrombosis is not completely excluded. Left superficial veins: Greater saphenous vein partial noncompressibility with color blood flow, perhaps reflecting a chronic superficial venous thrombosis, please correlate with history. Soft tissues: Unremarkable. Other findings: . US/[place] [id number] IMPRESSION: 1. Left common femoral vein and superficial femoral vein demonstrate incomplete compressibility and poor augmentation with color blood, perhaps reflecting a chronic deep venous thrombosis, please correlate with history. An acute on chronic deep venous thrombosis is not completely excluded. 2. Greater saphenous vein partial noncompressibility with color blood flow, perhaps reflecting a chronic superficial venous thrombosis, please correlate with history.
[2022-11-12 20:51] VITALS: BP 124/76; PULSE 88; RESP 14; TEMP 36.8; O2SAT 98; BMI 42.3
--- NOTE | 2022-11-12 21:49 | ED_ITS ---
HPI - Extremity Problem General: Chief complaint: Extremity Injury, Lower Stated complaint: left leg swelling Time Seen by Provider: 11/12/22 21:48 History of Present Illness: 47-year-old female comes in today for concerns of increased swelling and redness to the left lower leg. Patient has a history of chronic ulcer to the left lower leg. Patient appears nontoxic. Patient reports some increased pain. Patient is in no acute distress. Associated symptoms: Deny chest pain Review of Systems General: Reports: 10 or more systems reviewed and unremarkable except in HPI and below Card: Denies: chest pain Resp: Denies: dyspnea GI: Denies: abdominal pain Musc: Reports: extremity pain and extremity swelling Skin/Breast: Reports: erythema PFSH ED PFSH: Medical History No pertinent past medical history Family History Father CAD (coronary artery disease) Stroke Denies family history of Diabetes Cancer Hypertension Social History Smoking and tobacco status: never smoked Alcohol intake: never Substance/Drug Use: never Lives independently: Yes Household members: none Housing: House Marital status: Single Number of children: 0 Pets and animals: Yes Pets & animals: dog(s) Physical Exam Const: COMMON NORMALS: alert HENMT: COMMON NORMALS: normocephalic HEAD & SCALP: normocephalic Neck/C-Spine: COMMON NORMALS: full ROM Resp: COMMON NORMALS: normal respiratory effort and clear to auscultation bilaterally AUSCULTATION: clear to auscultation bilaterally Cardio: COMMON NORMALS: regular rate and regular rhythm RATE: regular rate RHYTHM: regular rhythm Back/Pelvis: COMMON NORMALS: thoracic and lumbar spine normal to inspection Extremity: LEFT LOWER EXTREMITY: Yes lower leg (Chronic ulcer affecting dermis left lateral leg, increased redness swelling) Left lower leg: Yes inspection, Yes palpation and Yes neurovascular exam Neuro: SENSORIUM/ORIENTATION: Yes alert Skin: NARRATIVE SKIN EXAM: Increased redness and swelling to the left lower extremity. Redness extends into the lateral part of the left upper leg. Course Vital Signs: Vital signs: Vital Signs Temperature 98.3 F 11/12/22 20:51 Pulse Rate 88 11/12/22 20:51 Respiratory Rate 14 11/12/22 20:51 Blood Pressure 124/76 11/12/22 20:51 Pulse Oximetry 98 11/12/22 20:51 Oxygen Delivery Me thod Room Air 11/12/22 20:51 MDM - Extremity (Nontraumatic) Medical Decision Making Patient comes in today due to increased redness and swelling to the left lower leg. On exam patient has pulses distally. Patient has some significant edema to the left lower leg. Patient does have a large ulcer extending into the dermis of the lateral left lower leg. Vital signs are normal. Respirations are even. Differential diagnosis includes DVT, stasis dermatitis, cellulitis, infected wound. Ultrasound of the extremity noted signs of chronic DVT. Patient will be placed on Eliquis to treat the DVT. Due to the increased redness around the area of the extremity I suspect a secondary cellulitis to her chronic wound. Patient be placed on doxycycline twice a day recommended to see wound care for further management of chronic wound. Patient reports understanding of care plan and need for follow-up or return to the ER. Lab Data Radiology Impressions Venous Duplex 11/12/22 20:46 IMPRESSION: 1. Left common femoral vein and superficial femoral vein demonstrate incomplete compressibility and poor augmentation with color blood, perhaps reflecting a chronic deep venous thrombosis, please correlate with history. An acute on chronic deep venous thrombosis is not completely excluded. 2. Greater saphenous vein partial noncompressibility with color blood flow, perhaps reflecting a chronic superficial venous thrombosis, please correlate with history. Discharge Plan Discharge Patient Disposition: Home Clinical Impression: Cellulitis Qualifiers: Site of cellulitis: extremity Site of cellulitis of extremity: lower extremity Laterality: left Qualified Code(s): L03.116 - Cellulitis of left lower limb Ulcer of lower limb Qualifiers: Laterality: left Non-pressure ulcer stage: limited to breakdown of skin Qualified Code(s): L97.921 - Non-pressure chronic ulcer of unspecified part of left lower leg limited to breakdown of skin DVT (deep venous thrombosis) Qualifiers: DVT location: lower extremity Affected thrombotic vein of extremity: unspecified vein of extremity Chronicity: chronic Laterality: left Qualified Code(s): I82.502 - Chronic embolism and thrombosis of unspecified deep veins of left lower extremity Condition: Stable Prescriptions: New doxycycline monohydrate 100 mg tablet 100 mg PO BID 10 Days Qty: 20 0RF tramadol 50 mg tablet 50 mg PO Q8H PRN (Reason: pain (scale score 7-10)) Qty: 14 0RF Eliquis DVT-PE Treat 30D Start 5 mg (74 tabs) tablets,dose pack See Rx Instructions .ROUTE .COMPLEX Qty: 74 0RF Rx Instructions: orally per package directions No Action acetaminophen [Tylenol Extra Strength] 500 mg Tablet 1,000 mg PO PRN PRN (Reason: Pain) Excedrin Extra Strength 250-250-65 mg Tablet 1 tab PO Q6H PRN (Reason: Headache) potassium chloride 20 mEq tablet extended release 20 meq PO DAILY Qty: 30 0RF furosemide 20 mg tablet 20 mg PO DAILY Qty: 30 0RF Discharge Orders: Discharge ED (Routine); Ordered 11/12/22 Ordered By: Urbano Turner Referrals: Naren Gale MD [Primary Care Provider] - Discharge Diet: Usual diet Discharge Activity: Increase activity as tolerated Patient Instructions: Apixaban (By mouth) (Eliquis), Cellulitis (ED), Deep Vein Thrombosis (ED) Activity Restrictions/Additional Instructions: Home and rest. Elevate lower extremities is much as possible. Take antibiotic twice daily for the next 10 days. Use tramadol as needed for severe pain. Follow-up with primary care as needed. Case management will contact you regarding follow-up appointment with wound care. Stand Alone Forms: Work/School Release Coding Level of Care Code ED Auto Wheel Alignment Specialist for Goldy Velazco
[2022-11-12] MEDS: doxycycline 100 mg Tablet PO ×2 (22:35→23:03)
[2022-11-12] MEDS: TRAMadol 50 mg Tablet PO (23:03)
[2022-11-12] MEDS: apixaban 5 mg Tablet 10 MG PO (23:03)
[2022-11-12 23:46] LABS: Anion Gap 14.4 (5-19); Blood Urea Nitrogen 21 mg/dL (6-20); Calcium 8.8 mg/dL (8.5-10.5); Carbon Dioxide 23 mmol/L (22-29); Chloride 101 mmol/L (98-107); Glomerular Filtration Rate 107.2 mL/min (90-130); Glucose 90 mg/dL (65-115); Osmolality Calculated 283 mOsm/kg (285-295); Potassium 3.4 mmol/L (3.5-5.1); Sodium 135 mmol/L (136-145)
--- NOTE | 2022-11-13 08:16 | DCPLANNER ---
Addendum entered by Taylor Murphy 11/15/22 09:39: Patient had a follow up appointment scheduled with wound care - patient did attend appointment Addendum entered by Taylor Murphy 11/14/22 09:07: Patient has a follow up appointment scheduled for Tuesday, November 15, 2022 at 9:[address] Epstein at [facility]. Original Note: water quality manager had message to schedule a follow up appointment for patient with Wound Care. water quality manager sent patients information to the front office staff at wound care. Patients information will be printed and reviewed. Clinic will call patient with appointment information.
== END 2022-11-12 23:20 | disposition home or self-care (01) ==
PROVIDERS: Emergency Provider Nurse Practitioner Family; PCP Family Medicine
DX: L03.116 Cellulitis of left lower limb (principal); L97.921 Non-pressure chronic ulcer of unspecified part of left lower leg limited to breakdown of skin; I82.502 Chronic embolism and thrombosis of unspecified deep veins of left lower extremity
CPT/HCPCS: 80048; 93971; 99284

== ENCOUNTER 2022-11-22 15:44 | Outpatient (CLI) | payer OTHER, SELFPAY ==
--- NOTE | 2022-11-22 16:00 | USCV_ITS ---
Quynh Spangler Age: 47 Gender: F : 1975 Exam Date: 11/22/2022 15:58 Ordering Phys: Urbano Epstein MD (Andy) ([email or web address]) Technologist: CT [place] [facility] [place]: rt lower ext pain HISTORY: Right leg pain PROCEDURES: Venous duplex imaging was performed in only the right lower extremity. FINDINGS: TDS due to body habitus CONCLUSIONS No evidence of right lower extremity DVT. Mitchell Kennedy MD (Electronically Signed) Final Date: 22 November 2022 17:23 S
== END 2022-11-22 15:45 | disposition home or self-care (01) ==
LOC: RAD 15:49
PROVIDERS: PCP Family Medicine; Visit Provider Thoracic Surgery (Cardiothoracic Vascular Surgery)
DX: M79.604 Pain in right leg (principal)
CPT/HCPCS: 93971

== ENCOUNTER 2023-06-21 00:17 | Emergency (ER) | payer OTHER, SELFPAY ==
[2023-06-21 00:18] VITALS: BP 139/93; PULSE 90; RESP 22; TEMP 36.7; O2SAT 100; BMI 43.8
--- NOTE | 2023-06-21 00:33 | XRR_ITS ---
PROCEDURE INFORMATION: Exam: XR Chest Exam date and time: 06/21/2023 12:54 AM Age: 48 years old Clinical indication: Right-sided; Patient HX: RT sided chest pain with painful inspirations. ; Additional info: Cp TECHNIQUE: Imaging protocol: Radiologic exam of the chest. Views: 1 view. COMPARISON: CT angio chest PE protcl [id number] 12/31/2020 10:11 AM FINDINGS: Lungs: Hazy opacity noted at each lung base. Pleural spaces: No pleural effusion. No pneumothorax. Heart/Mediastinum: Moderate cardiac enlargement. Bones/joints: Thoracolumbar fusion hardware is partly visualized. XR/XR chest 1V portable [id number] IMPRESSION: 1. Hazy opacity at each lung base is nonspecific but could reflect atelectasis or developing pneumonitis. Summation artifact from body habitus could also create this appearance. 2. Stable moderate cardiomegaly.
--- NOTE | 2023-06-21 00:54 | ECG_ITS ---
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 Measurements Intervals [place] Rate: 93 P: 52 AR: 143 QRS: 31 QRSD: 88 T: 38 QT: 335 QTc: 417 Interpretive Statements SINUS RHYTHM LOW QRS VOLTAGE IN PRECORDIAL LEADS [QRS DEFLECTION < 1.0 mV IN CHEST LEADS] Compared to ECG 12/31/2020 05:20:25 Low QRS voltage now present Electronically Signed On 06-21-2023 9:44:30 HOTEL [employer]ERGE by Georgi Thompson M.D. [email or web address]
--- NOTE | 2023-06-21 00:57 | ED_ITS ---
HPI - General Adult 2 General: Chief complaint: General Medical Stated complaint: upper right abd pain Time Seen by Provider: 06/21/23 00:20 Source: patient Mode of arrival: ambulatory Limitations: no limitations History of Present Illness: 48-year-old female states been having le ft-sided chest pain over the last 2 days states that sharp pain started after she had trouble to open her door. That is worse with movement and palpation. Has had some slight dyspnea she denies any cough or fevers. Associated symptoms: Reports chest pain; Deny dyspnea, headache(s), nausea, rash or vomiting Review of Systems 2 Const: Denies: fever(s), chills, body aches or change in appetite ENMT: Denies: throat pain or dental pain Card: Reports: chest pain Resp: Denies: dyspnea GI: Denies: abdominal pain, nausea, vomiting or diarrhea : Denies: dysuria Musc: Denies: neck pain or back pain Skin/Breast: Denies: rash Neuro: Denies: headache(s) PFSH ED 2 PFSH: Medical History No pertinent past medical history Family History Father CAD (coronary artery disease) Stroke Denies family history of Diabetes Cancer Hypertension Social History Smoking and tobacco/nicotine status: never used tobacco/nicotine Alcohol intake: never Substance/Drug Use: never Lives independently: Yes Household members: none Housing: House Marital status: Single Number of children: 0 Pets and animals: Yes Pets & animals: dog(s) Physical Exam 2 Const: COMMON NORMALS: no acute distress, patient oriented x3 and healthy appearing HENMT: COMMON NORMALS: normocephalic and atraumatic HEAD & SCALP: n ormocephalic and atraumatic Neck/C-Spine: COMMON NORMALS: full ROM and supple Chest: COMMONS NORMALS: normal inspection of the chest Resp: COMMON NORMALS: normal respiratory effort, No retractions, No use of accessory muscles and clear to auscultation bilaterally AUSCULTATION: clear to auscultation bilaterally Cardio: COMMON NORMALS: regular rate, regular rhythm and No murmurs present (Cardio) RATE: regular rate RHYTHM: regular rhythm GI: COMMON NORMALS: Normal to inspection, nondistended, normoactive bowel sounds present, Soft to palpation, non-tender and no masses PALPATION: Yes Soft to palpation Extremity: COMMON NORMALS: normal to inspection and full ROM Neuro: COMMON NORMALS: patient oriented x3, moves all extremities and no focal motor deficits Psych: COMMON NORMALS: mental status grossly normal, Normal thought process present and cooperative THOUGHT PROCESS: Normal thought process present Skin: COMMON NORMALS: no rashes or lesions noted and no wounds GENERAL SKIN EXAM: no rashes or lesions noted Course 2 Vital Signs: Vital signs: Vital Signs Temperature 98.0 F 06/21/23 00:18 Pulse Rate 96 06/21/23 01:04 Respiratory Rate 16 06/21/23 01:04 Blood Pressure 145/105 06/21/23 01:04 Pulse Oximetry 96 06/21/23 01:04 Oxygen Delivery Me thod Room Air 06/21/23 00:18 MDM - General Adult Medical Decision Making Patient presents here with left-sided chest pain is atypical in nature likely chest wall pain she has no signs of pulmonary embolism or aortic dissection she is low risk for PE her troponin here is negative her pain has been going on for 2 days she is stable for discharge she is follow-up with PCP and return if worsening. Medical Records I reviewed the patient's medical records. Lab Data I reviewed the patient's lab results. 06/21/23 00:41 06/21/23 00:41 Radiology Impressions Chest X-Ray 06/21/23 00:33 IMPRESSION: 1. Hazy opacity at each lung base is nonspecific but could reflect atelectasis or developing pneumonitis. Summation artifact from body habitus could also create this appearance. 2. Stable moderate cardiomegaly. Laboratory Results WBC 5.92 10^3/uL (3.29-11.43) 06/21/23 00:41 RBC 4.78 10^6/uL (3.85-5.65) 06/21/23 00:41 Hgb 13.20 g/dL (11.27-16.99) 06/21/23 00:41 Hct 41.4 % (36-47) 06/21/23 00:41 MCV 86.6 fl (85-98) 06/21/23 00:41 MCH 27.6 pg (27-33) 06/21/23 00:41 MCHC 31.9 g/dL (30-55) 06/21/23 00:41 RDW 14.6 % (12.1-15.1) 06/21/23 00:41 Plt Count 273 10^3/cmm (157-399) 06/21/23 00:41 MPV 9.5 fL (7.4-10.4) 06/21/23 00:41 Neut % (Auto) 69.6 % 06/21/23 00:41 Lymph % (Auto) 13.5 % 06/21/23 00:41 [place] % (Auto) 11.8 % 06/21/23 00:41 Eos % (Auto) 4.1 % 06/21/23 00:41 Baso % (Auto) 0.7 % 06/21/23 00:41 Neut # (Auto) 4.12 10^3/uL (1.8-7.7) 06/21/23 00:41 Lymph # (Auto) 0.8 10^3/uL (0.8-4.8) 06/21/23 00:41 [place] # (Auto) 0.7 10^3/uL (0.2-0.9) 06/21/23 00:41 Eos # (Auto) 0.2 10^3/uL (0.0-0.8) 06/21/23 00:41 Baso # (Auto) 0.0 10^3/uL (0.0-0.1) 06/21/23 00:41 Nucleated RBC % (auto) 0 % 06/21/23 00:41 Nucleated RBCs # 0.0 /100WBC 06/21/23 00:41 D-Dimer 0.62 ug/mLFEU (0-0.59) H 06/21/23 00:41 Sodium 140 mmol/L (136-145) 06/21/23 00:41 Potassium 4.1 mmol/L (3.5-5.1) 06/21/23 00:41 Chloride 104 mmol/L (98-107) 06/21/23 00:41 Carbon Dioxide 28 mmol/L (22-29) 06/21/23 00:41 Anion Gap 12.1 (5-19) 06/21/23 00:41 BUN 16 mg/dL (6-20) 06/21/23 00:41 Creatinine 0.7 mg/dL (0.5-0.9) 06/21/23 00:41 GFR Calculation 89.3 mL/min (90-130) L 06/21/23 00:41 Glucose 93 mg/dL (65-115) 06/21/23 00:41 Calculated Osmolality 291 mOsm/kg (285-295) 06/21/23 00:41 Calcium 9.4 mg/dL (8.5-10.5) 06/21/23 00:41 Total Bilirubin 0.4 mg/dL (0.15-1.2) 06/21/23 00:41 AST 19 U/L (0-32) 06/21/23 00:41 ALT 14 U/L (0-33) 06/21/23 00:41 Alkaline Phosphatase 142 U/L (35-105) H 06/21/23 00:41 Troponin T Baseline 8 ng/L (0-10) 06/21/23 00:41 Total Protein 7.9 g/dL (6.6-8.7) 06/21/23 00:41 Albumin 3.7 g/dL (3.5-5.2) 06/21/23 00:41 Globulin 4.2 g/dL (1.3-4.6) 06/21/23 00:41 Lipase 19 U/L (13-60) 06/21/23 00:41 No radiology studies performed this visit EKG Data EKG 1: I personally reviewed and interpreted this EKG as follows: EKG interpretation date: 06/21/23 EKG interpretation time: 00:28 Interpretation: nsr hr [address] or t wave abnormalities qrs 88 qtc 385 Computer generated interpretation: Chest X-Ray 06/21/23 00:33 IMPRESSION: 1. Hazy opacity at each lung base is nonspecific but could reflect atelectasis or developing pneumonitis. Summation artifact from body habitus could also create this appearance. 2. Stable moderate cardiomegaly. Discharge Plan Discharge Patient Disposition: Home Clinical Impression: Chest pain Qualifiers: Chest pain type: unspecified Qualified Code(s): R07.9 - Chest pain, unspecified Condition: Stable Prescriptions: New Naprosyn 500 mg tablet 500 mg PO BID PRN (Reason: pain) Qty: 20 0RF No Action acetaminophen [Tylenol Extra Strength] 500 mg Tablet 1,000 mg PO PRN PRN (Reason: Pain) Excedrin Extra Strength 250-250-65 mg Tablet 1 tab PO Q6H PRN (Reason: Headache) potassium chloride 20 mEq tablet extended release 20 meq PO DAILY Qty: 30 0RF furosemide 20 mg tablet 20 mg PO DAILY Qty: 30 0RF tramadol 50 mg tablet 50 mg PO Q8H PRN (Reason: pain (scale score 7-10)) Qty: 14 0RF Eliquis DVT-PE Treat 30D Start 5 mg (74 tabs) tablets,dose pack See Rx Instructions .ROUTE .COMPLEX Qty: 74 0RF Rx Instructions: orally per package directions Discharge Orders: Discharge ED (Routine); Ordered 06/21/23 Ordered By: Andrzej Howell Referrals: Naren Gale MD [Primary Care Provider] - 1-3 days Discharge Diet: Advance as tolerated Discharge Activity: Resume usual activity Patient Instructions: Chest Wall Pain (ED) Coding Level of Care Code ED Fisheries Manager for Goldy Velazco
[2023-06-21] MEDS: ketorolac 30 mg/mL INJ 15 MG IVP (01:02)
[2023-06-21 01:04] VITALS: BP 145/105; PULSE 96; RESP 16; O2SAT 96
[2023-06-21 01:09] LABS: Basophils % 0.7 %; Eosinophils # 0.2 10^3/uL (0.0-0.8); Eosinophils % 4.1 %; Hematocrit 41.4 % (36-47); Lymphocytes # 0.8 10^3/uL (0.8-4.8); Lymphocytes % 13.5 %; Mean Corpuscular HGB Conc 31.9 g/dL (30-55); Mean Corpuscular Hemoglobin 27.6 pg (27-33); Mean Corpuscular Volume 86.6 fl (85-98); Mean Platelet Volume 9.5 fL (7.4-10.4); Monocytes # 0.7 10^3/uL (0.2-0.9); Monocytes % 11.8 %; Neutrophils # 4.12 10^3/uL (1.8-7.7); Neutrophils % 69.6 %; Nucleated Red Blood Cells % 0 %; Platelet Count 273 10^3/cmm (157-399); Red Blood Count 4.78 10^6/uL (3.85-5.65); Red Cell Distribution Width 14.6 % (12.1-15.1); White Blood Count 5.92 10^3/uL (3.29-11.43)
[2023-06-21 01:26] LABS: D Dimer 0.62 ug/mLFEU (0-0.59)
[2023-06-21 01:31] LABS: Alanine Aminotransferase 14 U/L (0-33); Albumin Level 3.7 g/dL (3.5-5.2); Alkaline Phosphatase 142 U/L (35-105); Anion Gap 12.1 (5-19); Aspartate Amino Transferase 19 U/L (0-32); Blood Urea Nitrogen 16 mg/dL (6-20); Calcium 9.4 mg/dL (8.5-10.5); Carbon Dioxide 28 mmol/L (22-29); Chloride 104 mmol/L (98-107); Globulin 4.2 g/dL (1.3-4.6); Glomerular Filtration Rate 89.3 mL/min (90-130); Glucose 93 mg/dL (65-115); Lipase 19 U/L (13-60); Osmolality Calculated 291 mOsm/kg (285-295); Potassium 4.1 mmol/L (3.5-5.1); Sodium 140 mmol/L (136-145); Total Bilirubin 0.4 mg/dL (0.15-1.2); Total Protein 7.9 g/dL (6.6-8.7)
[2023-06-21 01:45] LABS: Troponin(5th) Baseline 8 ng/L (0-10)
== END 2023-06-21 02:03 | disposition home or self-care (01) ==
PROVIDERS: Emergency Provider Emergency Medicine; PCP Family Medicine
DX: R07.9 Chest pain, unspecified (principal); Z79.01 Long term (current) use of anticoagulants
CPT/HCPCS: 36415; 71045; 80053; 83690; 84484; 85025; 85378; 93005; 96374; 99285; J1885

== ENCOUNTER 2023-09-21 00:55 | Emergency (ER) | payer OTHER, SELFPAY ==
[2023-09-21 00:59] VITALS: BP 166/95; PULSE 85; RESP 18; TEMP 36.4; O2SAT 96; BMI 44.1
--- NOTE | 2023-09-21 01:50 | W.ED.DENTAL ---
HPI - Dental/Oral General: Chief complaint: Dental/Oral Stated complaint: Toothache\Jaw Swollen Time Seen by Provider: 09/21/23 01:50 History of Present Illness: Patient presents to the ER with left lower dental pain and swelling. Patient has multiple necrotic teeth in the left lower incisor reason. Patient started to get some swelling as noticeable on the outside. This been going on for least 3 days now. Patient has not been on any antibiotics but she has been using [id number] Tylenol and Motrin with minimal relief. Patient has no known allergies. Review of Systems General: Reports: 10 or more systems reviewed and unremarkable except in HPI and below PFSH ED PFSH: Medical History No pertinent past medical history Family History Father CAD (coronary artery disease) Stroke Denies family history of Diabetes Cancer Hypertension Social History Smoking and tobacco/nicotine status: never used tobacco/nicotine Alcohol intake: never Substance/Drug Use: never Lives independently: Yes Household members: none Housing: House Marital status: Single Number of children: 0 Pets and animals: Yes Pets & animals: dog(s) Physical Exam Const: COMMON NORMALS: no acute distress, average body habitus, patient oriented x3, no limitations, healthy appearing, alert and well nourished HENMT: COMMON NORMALS: normocephalic, atraumatic, hearing grossly normal bilaterally, external ears normal, Normal external nose present, moist oral mucous membranes and oropharynx normal; dentition not normal (Very poor necrotic dentition throughout,) HEAD & SCALP: normocephalic and atraumatic NOSE: Normal external nose present EXTERNAL EAR: Yes external ears normal Neck/C-Spine: COMMON NORMALS: full ROM, no lymphadenopathy, supple, no meningeal signs, no JVD and Thyroid normal THYROID: Thyroid normal Chest: COMMONS NORMALS: normal inspection of the chest and normal palpation of entire chest wall Resp: COMMON NORMALS: normal respiratory effort, No retractions, No use of accessory muscles and clear to auscultation bilaterally AUSCULTATION: clear to auscultation bilaterally Cardio: COMMON NORMALS: no JVD, regular rate, regular rhythm, S1 normal heart sound present, S2 normal heart sound present, No gallops present (Cardio), No clicks present (Cardio), No murmurs present (Cardio) and No rub (Cardio) RATE: regular rate RHYTHM: regular rhythm HEART SOUNDS: S1 normal heart sound present and S2 normal heart sound present GI: COMMON NORMALS: Normal to inspection, nondistended, normoactive bowel sounds present, Soft to palpation, non-tender, No hepatosplenomegaly present and no masses PALPATION: Yes Soft to palpation and Yes No hepatosplenomegaly present Neuro: COMMON NORMALS: patient oriented x3 SENSORIUM/ORIENTATION: Yes alert MENINGEAL SIGNS: Yes no meningeal signs Course Vital Signs: Vital signs: Vital Signs Temperature 97.6 F 09/21/23 00:59 Pulse Rate 85 09/21/23 00:59 Respiratory Rate 18 09/21/23 00:59 Blood Pressure 166/95 09/21/23 00:59 Pulse Oximetry 96 09/21/23 00:59 [facility] - Dental/Oral Medical Decision Making Patient be placed on amoxicillin and told to follow-up with her dentist for definitive treatment. Differential Diagnosis Likely dental caries and toothache; Unlikely gingival abscess, dental abscess, fracture of tooth or aphthous ulcer Medical Records I reviewed the patient's medical records. Lab Data I reviewed the patient's lab results. No radiology studies performed this visit Discharge Plan Discharge Patient Disposition: Home Clinical Impression: Dental caries, Toothache Condition: Stable Prescriptions: New amoxicillin 500 mg capsule 500 mg PO Q8H Qty: 30 0RF No Action acetaminophen [Tylenol Extra Strength] 500 mg Tablet 1,000 mg PO PRN PRN (Reason: Pain) Excedrin Extra Strength 250-250-65 mg Tablet 1 tab PO Q6H PRN (Reason: Headache) potassium chloride 20 mEq tablet extended release 20 meq PO DAILY Qty: 30 0RF furosemide 20 mg tablet 20 mg PO DAILY Qty: 30 0RF tramadol 50 mg tablet 50 mg PO Q8H PRN (Reason: pain (scale score 7-10)) Qty: 14 0RF Eliquis DVT-PE Treat 30D Start 5 mg (74 tabs) tablets,dose pack See Rx Instructions .ROUTE .COMPLEX Qty: 74 0RF Rx Instructions: orally per package directions Naprosyn 500 mg tablet 500 mg PO BID PRN (Reason: pain) Qty: 20 0RF Discharge Orders: Discharge ED (Routine); Ordered 09/21/23 Ordered By: Sanford Cornejo Referrals: Naren Gale MD [Primary Care Provider] - 1 week Patient Instructions: Dental Caries (Cavities) Activity Restrictions/Additional Instructions: Please take all your antibiotic as directed. Please follow-up with your dentist for definitive treatment. Coding Level of Care Code ED Pharmacy Operations Manager for Goldy Velazco
== END 2023-09-21 02:20 | disposition home or self-care (01) ==
PROVIDERS: Emergency Provider Emergency Medicine; PCP Family Medicine
DX: K02.9 Dental caries, unspecified (principal); Z79.01 Long term (current) use of anticoagulants
CPT/HCPCS: 99283

== ENCOUNTER → 2023-10-21 12:33 | Outpatient (BNVA) | payer OTHER, SELFPAY | PROVIDERS: PCP Family Medicine; Referring Provider Nurse Practitioner Family; Visit Provider Internal Medicine | DX: R07.9 Chest pain, unspecified (principal) | CPT/HCPCS: 93005 ==

== ENCOUNTER 2023-11-13 08:46 | Outpatient (CLI) | payer OTHER, SELFPAY ==
[2023-11-13 09:14] VITALS: BMI 47.0
--- NOTE | 2023-11-13 09:15 | USCV_ITS ---
Quynh Spangler Age: 48 Gender: F : 1975 Exam Date: 11/13/2023 09:19 Ordering Phys: Jason Qiu M.D ([email or web address]) Technologist: Exam [place] [facility] [place]: chest pain BP: 117 / 67 HR: 81 Rhythm: Sinus Technical Quality: Adequate MEASUREMENTS (Male / Female) Normal Values 2D ECHO LV Diastolic Diameter PLAX 3.9 cm 4.2 - 5.9 / 3.9 - 5.3 cm IVS Diastolic Thickness 1.1 cm 0.6 - 1.0 / 0.6 - 0.9 cm IVS Systolic Thickness 1.6 cm LVPW Diastolic Thickness 0.9 cm 0.6 - 1.0 / 0.6 - 0.9 cm LVPW Systolic Thickness 1.6 cm LVOT Diameter 2.1 cm LV Ejection Fraction 2D Teich 64.5 % LV Ejection Fraction MOD 2C 65.8 % LV Ejection Fraction 2C AL 64.5 % LA Diameter 3.9 cm RA Systolic Volume 4C AL 31.6 ml RA Systolic Volume 4C MOD 30.6 ml Aorta at Sinotubular Diameter 3.2 cm IVC Diameter 1.5 cm M-MODE LA Ao Ratio MM 1.5 AV Cusp Separation MM 2.2 cm DOPPLER LVOT Peak Velocity 111.0 cm/s AV Area Cont Eq vti 2.8 cm squared AV Area Cont Eq pk 2.9 cm squared MV Peak Velocity 133.0 cm/s MV Area PHT 4.0 cm squared Mitral E to A Ratio 0.9 TV Peak Velocity 131.0 cm/s TR Peak Velocity 145.0 cm/s TR Peak Gradient 8.4 mmHg TV Peak E Velocity 75.0 cm/s Right Atrial Pressure 3.0 mmHg Pulmonary Artery Systolic Pressu 11.4 mmHg PV Peak Velocity 104.0 cm/s FINDINGS Left Ventricle Left ventricle is normal in size. LV systolic function is normal with EF of 60 to 65%. No regional wall motion abnormalities are seen. Right Ventricle Normal in size and function Right Atrium Normal in size Left Atrium Normal in size Mitral Valve Mild mitral annular calcification. Mild mitral regurgitation. Aortic Valve Grossly normal. No significant stenosis or regurgitation. Tricuspid Valve Insufficient TR jet to calculate RVSP Pulmonic Valve Not well visualized Pericardium Normal Aorta Normal in size IVC Appears to be normal CONCLUSIONS Technically limited quality echocardiogram because of poor ultrasonic windows. LV systolic function is normal with EF of 60 to 65%. Mild mitral regurgitation. No comparison studies are available. Jason Qiu MD (Electronically Signed) Final Date: 16 November 2023 23:09 S
--- NOTE | 2023-11-13 09:17 | ECG_ITS ---
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 Interpretive Statements NAME OF STUDY: LEXISCAN SESTAMIBI STRESS TEST INDICATION: [Chest Pain; Shortness of Breath, ] Procedure: At the baseline, the blood pressure was 139/80 mmHg with a heart rate of 76 bpm. The electrocardiogram showed normal sinus rhythm, normal axis with normal ST and T's. The Lexiscan was infused over a period of 20 seconds. A total of 0.4 mg of Lexiscan was infused. The stress phase was continued for a total of 5 minutes. Heart rate was at the end of stress phase was 90 bpm and a blood pressure of 129/87 mmHg. The EKG at the peak infusion revealed normal sinus rhythm with no significant ST-T wave changes. Sestamibi was injected 20 seconds after the Lexiscan infusion. Blood pressure at the end of recovery phase was 135/89 mmHg with a heart rate of 87 bpm. Conclusion: 1. Normal EKG response to Lexiscan infusion 2. No Lexiscan induced chest pain or cardiac arrhythmia. 3. Normal blood pressure and heart rate response. 4. Sestamibi/sestamibi perfusion scan pending; see separate report. Electronically Signed On 11-17-2023 9:25:45 CDT by Jason Qiu M.D. [id number]
--- NOTE | 2023-11-13 09:17 | NMCV_ITS ---
NM cindy perf SPECT r/s* [id number] Quynh Spangler Age: 48 Gender: F : 1975 Exam Date: 11/13/2023 09:40 Ordering Phys: Jason Qiu M.D ([email or web address]) Technologist: SEVERINO Yusuf Exam Location: [facility] Indications: SOB, CP STRESS TEST [facility] IMAGE PROTOCOL Rest/Stress 1 Lexiscan Day Radiopharmaceutical Dose (mCi) Administration Site Administered by Rest: Tc-99m 11.0 IV SEVERINO Yusuf Sestamibi Stress:Tc-99m 33.0 IV SEVERINO Yusuf Sestamibi Rest: 13-Nov-2023 60 Discovery 630 Stress: 13-Nov-2023 30 Discovery 630 0.4mg Lexiscan. Supine position only as patient was unable to lay prone. SPECT RESULTS Technical Quality: Good Raw Data Analysis: Soft tissue attenuation Image Corrections: No attenuation or motion correction applied Summed Stress Score: 2 Summed Rest Score: 0 Summed Difference Score: 2 PERFUSION FINDINGS There is small area of reduced radiotracer uptake in anterolateral and inferolateral deal that improves on stress images. This likely represents attenuation artifact. Clinical correlation is required FUNCTIONAL RESULTS (calculated via Gated SPECT) Stress Image LV EF (%): 71 Stress EDV (mL):131 TID: 1.03 Stress ESV (mL):38 FUNCTIONAL FINDINGS: There is normal left ventricular systolic function. IMPRESSIONS 1. Small area of attenuation artifact seen in the anterolateral and inferolateral deal. No evidence of ischemia 2. LV systolic function is normal Jason Qiu MD (Electronically Signed) Final Date: 13 November 2023 11:57 S
[2023-11-13] MEDS: regadenoson 0.4 Mg/5 ml Syringe 0.400000000000000022 MG IVP (10:27)
[2023-11-13 10:29] VITALS: BP 135/89; PULSE 87
== END 2023-11-13 08:47 | disposition home or self-care (01) ==
LOC: RAD 08:47 → CDL 09:08 → RAD 12:09
PROVIDERS: PCP Family Medicine; Visit Provider Internal Medicine
DX: R06.02 Shortness of breath (principal); R94.39 Abnormal result of other cardiovascular function study
CPT/HCPCS: 36415; 78452; 93017; 93306; 96374; A9500; J2785

== ENCOUNTER → 2024-02-27 09:50 | Outpatient (BNVA) | payer OTHER, SELFPAY | PROVIDERS: PCP Family Medicine; Visit Provider Thoracic Surgery (Cardiothoracic Vascular Surgery) | DX: Z01.89 Encounter for other specified special examinations (principal) | CPT/HCPCS: 87070; 87176; 87186; 87205 ==

== ENCOUNTER → 2024-04-07 09:27 | Outpatient (BNVA) | payer OTHER, SELFPAY | PROVIDERS: PCP Family Medicine; Visit Provider Thoracic Surgery (Cardiothoracic Vascular Surgery) | DX: I83.029 Varicose veins of left lower extremity with ulcer of unspecified site (principal); L97.929 Non-pressure chronic ulcer of unspecified part of left lower leg with unspecified severity; R52 Pain, unspecified | CPT/HCPCS: 87070; 87176; 87205 ==

== ENCOUNTER 2024-06-14 00:33 | Inpatient (IN) | payer OTHER, SELFPAY ==
[2024-06-14] VITALS (25 sets, daily range): BP systolic 108–156; BP diastolic 68–93; PULSE 80–111; RESP 16–23; TEMP 36.7–36.9; O2SAT 90–99; BMI 47.7
--- NOTE | 2024-06-14 00:36 | ECG_ITS ---
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 Measurements Intervals [place] Rate: 104 P: 62 NH: 122 QRS: 68 QRSD: 82 T: 49 QT: 301 QTc: 397 Interpretive Statements SINUS TACHYCARDIA POSSIBLE RIGHT VENTRICULAR CONDUCTION DELAY [RSR (QR) IN V1/V2] ABNORMAL RHYTHM ECG Compared to ECG 10/21/2023 12:40:57 Ectopic atrial rhythm no longer present Atrial abnormality no longer present Electronically Signed On 06-15-2024 23:58:32 INSTRUMENT WORKER by Dudley Torrez M.D. [id number]
--- NOTE | 2024-06-14 01:24 | XRR_ITS ---
PROCEDURE INFORMATION: Exam: XR Chest Exam date and time: 06/14/2024 1:25 AM Age: 49 years old Clinical indication: Shortness of breath; Prior surgery; Surgery date: 6+ months; Surgery type: Thoracolumbar fusion; Patient HX: C/O SOB. TECHNIQUE: Imaging protocol: Radiologic exam of the chest. Views: 1 view. COMPARISON: CR XR chest 1V portable [id number] 06/21/2023 12:54 AM FINDINGS: Lungs: Patchy airspace disease present throughout the bilateral mid and lower lung schrader. Pleural spaces: Unremarkable. No pleural effusion. No pneumothorax. Heart/Mediastinum: Stable cardiomegaly. Bones/joints: Unremarkable. XR/XR chest 1V portable [id number] IMPRESSION: Patchy airspace disease throughout the bilateral mid and lower lung schrader.
--- NOTE | 2024-06-14 01:27 | W.ED.SOB ---
HPI - SOB/Dyspnea General: Chief Complaint: ER Hold Stated Complaint: Back Hurts\Chest Hurts\SOB Time Seen by Provider: 06/14/24 00:47 History of Present Illness: HPI Narrative: 49-year-old female who had severe COVID back in 2020. She does not use oxygen normally. She presents with significant shortness of breath, chest and back discomfort. She has been coughing. Little sputum production. No fever. On arrival, room air saturations were low. She was 84% on room air after walking to her room in the emergency department. She is placed on oxygen with some improvement. Related Data Home Medications Medication Instructions Recorded Confirmed acetaminophen 500 mg tablet 1,000 mg PO PRN PRN Pain 12/31/20 01/22/24 (Tylenol Extra Strength) xjeapio-xwiadtikgvucv-yrjinpwh 250 1 tab PO Q6H PRN Headache 01/21/22 01/22/24 mg-250 mg-65 mg tablet (Excedrin Extra Strength) aspirin 325 mg tablet 325 mg PO DAILY 10/21/23 01/22/24 Previous Rx's Medication Instructions Recorded furosemide 20 mg tablet 20 mg PO DAILY #30 tabs 01/21/22 potassium chloride 20 mEq 20 meq PO DAILY #30 tabs 01/21/22 tablet,extended release tramadol 50 mg tablet 50 mg PO Q8H PRN pain (scale score 11/12/22 7-10) #14 tabs hydrocodone 5 mg-acetaminophen 325 1 tab PO BID PRN pain 5 days #10 02/20/24 mg tablet tabs doxycycline hyclate 100 mg tablet 100 mg PO DAILY 10 days #10 tabs 02/27/24 linezolid 600 mg tablet 600 mg PO BID 10 days #20 tabs 02/27/24 levofloxacin 500 mg tablet 500 mg PO DAILY #14 tabs 03/01/24 amoxicillin 500 mg-potassium 1 tab PO BID #14 tabs 04/23/24 clavulanate 125 mg tablet (Augmentin) sulfamethoxazole 800 1 tab PO BID #14 tabs 06/10/24 mg-trimethoprim 160 mg tablet Allergies Allergy/AdvReac Type Severity Reaction Status Date / Time No Known Allergies Allergy Verified 06/14/24 00:44 [facility] ED [facility]: Medical History Dyspnea on exertion Saphenofemoral venous reflux Pneumonia due to COVID-19 virus No pertinent past medical history Surgical History History of cholecystectomy H/O hernia repair Previous back surgery H/O hand surgery History of lumpectomy of right breast Family History Father CAD (coronary artery disease) Stroke Denies family history of Diabetes Cancer Hypertension Social History Smoking and tobacco/nicotine status: former use of tobacco/nicotine Alcohol intake: never Substance/Drug Use: never Lives independently: Yes Household members: none Housing: House Marital status: Single Number of children: 0 Pets and animals: Yes Pets & animals: dog(s) Physical Exam Const: GENERAL APPEARANCE: cooperative and ill appearing; not frail appearing HENMT: COMMON NORMALS: normocephalic, atraumatic and Normal external nose present HEAD & SCALP: normocephalic and atraumatic FACE & SINUS: normal facial exam and face symmetric NOSE: Normal external nose present Eye: COMMON NORMALS: Equal, round and reactive pupils present and EOMs intact bilaterally PUPIL: Yes Equal, round and reactive pupils present Neck/C-Spine: GENERAL: Yes trachea midline Chest: CHEST: Yes Symmetrical chest wall rise Resp: COMMON NORMALS: clear to auscultation bilaterally EFFORT & INSPECTION: Yes tachypneic and Yes labored AUSCULTATION: clear to auscultation bilaterally and diminished lung sounds Cardio: COMMON NORMALS: regular rhythm RATE: tachycardic RHYTHM: regular rhythm GI: COMMON NORMALS: Normal to inspection, nondistended, normoactive bowel sounds present Extremity: COMMON NORMALS: no pedal edema Neuro: KATHLEEN COMA SCALE: document GCS findings [place] coma scale eye opening: Spontaneous Kathleen coma scale verbal response: Orientated [place] coma scale motor response: Obey commands Kathleen coma scale total score: 15 SENSORY EXAM: Yes extremities (intact) Psych: COMMON NORMALS: speech normal SPEECH: Yes normal speech Skin: COMMON NORMALS: no rashes or lesions noted GENERAL SKIN EXAM: no rashes or lesions noted Course Vital Signs: Vital signs: Vital Signs Temperature 98.3 F 06/14/24 00:36 Pulse Rate 102 H 06/14/24 05:04 Respiratory Rate 22 H 06/14/24 05:04 Blood Pressure 125/85 06/14/24 05:04 Pulse Oximetry 95 06/14/24 05:04 Oxygen Delivery Me thod Nasal Cannula 06/14/24 05:04 Oxygen Flow Rate 2 06/14/24 05:04 MDM - SOB/Dyspnea Medical Decision Making Patient is on 2 L nasal cannula with improvement in her saturations. At rest, she seems to be breathing better. She is afebrile. CBC is normal. BMP is normal. Chest x-ray shows patchy airspace disease. CTA is done because D-dimer is elevated. It shows extensive medial and axillary lymphadenopathy, with mosaic attenuation of the lungs. Her lactic acid is 1.9. BNP is 518. Troponin is 10 baseline. Respiratory panel is pending. Given her oxygen demand, significant desaturation with activity, she will be admitted. Lab Data 06/14/24 00:56 06/14/24 00:56 Labs/Radiology: Radiology Impressions Chest X-Ray 06/14/24 01:24 IMPRESSION: Patchy airspace disease throughout the bilateral mid and lower lung schrader. Chest CTA 06/14/24 02:00 IMPRESSION: 1. Negative exam for pulmonary embolus and aortic dissection. 2. Multiple pulmonary nodules throughout the lungs. Follow-up per Fleischner criteria recommended. 3. Extensive mediastinal and axillary lymphadenopathy. Etiology not discerned on this exam. The differential diagnosis includes malignancy, granulomatous disease and sarcoidosis. 4. Mosaic attenuation of the lung parenchyma which may be related to air trapping or mild alveolar edema. For patients at low risk (minimal or absent history of smoking and of other known risk factors), recommend CT Chest at 3-6 months, then consider CT Chest at 18-24 months. For patients at high risk (history of smoking or of other known risk factors), recommend CT Chest at 3-6 months, then CT Chest at 18-24 months. (Reference: Shereen) REFERENCES: Shereen Saravia et al. Guidelines for Management of Incidental Pulmonary Nodules Detected on CT Images: From the Fleischner Society 2017. Radiology. 2017;284(1):228-243. Laboratory Results WBC 5.19 10^3/uL (3.29-11.43) 06/14/24 00:56 RBC 5.05 10^6/uL (3.85-5.65) 06/14/24 00:56 Hgb 13.10 g/dL (11.27-16.99) 06/14/24 00:56 Hct 43.7 % (36-47) 06/14/24 00:56 MCV 86.5 fl (85-98) 06/14/24 00:56 MCH 25.9 pg (27-33) L 06/14/24 00:56 MCHC 30.0 g/dL (30-55) 06/14/24 00:56 RDW 17.3 % (12.1-15.1) H 06/14/24 00:56 Plt Count 234 10^3/cmm (157-399) 06/14/24 00:56 MPV 9.3 fL (7.4-10.4) 06/14/24 00:56 Neut % (Auto) 77.4 % 06/14/24 00:56 Lymph % (Auto) 6.2 % 06/14/24 00:56 [place] % (Auto) 11.8 % 06/14/24 00:56 Eos % (Auto) 4.2 % 06/14/24 00:56 Baso % (Auto) 0.2 % 06/14/24 00:56 Neut # (Auto) 4.02 10^3/uL (1.8-7.7) 06/14/24 00:56 Lymph # (Auto) 0.3 10^3/uL (0.8-4.8) L 06/14/24 00:56 [place] # (Auto) 0.6 10^3/uL (0.2-0.9) 06/14/24 00:56 Eos # (Auto) 0.2 10^3/uL (0.0-0.8) 06/14/24 00:56 Baso # (Auto) 0.0 10^3/uL (0.0-0.1) 06/14/24 00:56 Nucleated RBC % (auto) 0 % 06/14/24 00:56 Nucleated RBCs # 0.0 /100WBC 06/14/24 00:56 D-Dimer 0.96 ug/mLFEU (0-0.59) H 06/14/24 00:56 Sodium 139 mmol/L (136-145) 06/14/24 00:56 Potassium 4.4 mmol/L (3.5-5.1) 06/14/24 00:56 Chloride 103 mmol/L (98-107) 06/14/24 00:56 Carbon Dioxide 25 mmol/L (22-29) 06/14/24 00:56 Anion Gap 15.4 (5-19) 06/14/24 00:56 BUN 14 mg/dL (6-20) 06/14/24 00:56 Creatinine 0.7 mg/dL (0.5-0.9) 06/14/24 00:56 GFR Calculation 88.9 mL/min (90-130) L 06/14/24 00:56 Glucose 107 mg/dL (65-115) 06/14/24 00:56 Calculated Osmolality 289 mOsm/kg (285-295) 06/14/24 00:56 Lactic Acid 1.9 mmol/L (0.5-2.2) 06/14/24 00:56 Calcium 8.6 mg/dL (8.5-10.5) 06/14/24 00:56 Total Bilirubin 0.4 mg/dL (0.15-1.2) 06/14/24 00:56 AST 26 U/L (0-32) 06/14/24 00:56 ALT 19 U/L (0-33) 06/14/24 00:56 Alkaline Phosphatase 188 U/L (35-105) H 06/14/24 00:56 Troponin T Baseline 10 ng/L (0-10) 06/14/24 00:56 Troponin T 120 Minute 9.34 ng/L (0-10) 06/14/24 02:35 Delta Troponin T -0.66 ABS# (0-10) L 06/14/24 02:35 NT-Pro-B Natriuret Pep 518 pg/mL (0-125) H 06/14/24 00:56 Total Protein 7.1 g/dL (6.6-8.7) 06/14/24 00:56 Albumin 3.6 g/dL (3.5-5.2) 06/14/24 00:56 Globulin 3.5 g/dL (1.3-4.6) 06/14/24 00:56 Procalcitonin 0.08 ng/mL (0-0.5) 06/14/24 00:56 Adenovirus (PCR) Not detected (NOT DETECT) 06/14/24 00:56 C. pneumoniae DNA (PCR) Not detected (NOT DETECT) 06/14/24 00:56 Coronavirus 229E (PCR) Not detected (NOT DETECT) 06/14/24 00:56 Human Metapneumovir PCR Not detected (NOT DETECT) 06/14/24 00:56 Influenza A (H1) PCR Not detected (NOT DETECT) 06/14/24 00:56 Influ A (H1/09) PCR Not detected (NOT DETECT) 06/14/24 00:56 Influenza A (H3) PCR Not detected (NOT DETECT) 06/14/24 00:56 Influenza Type A (PCR) Not detected (NOT DETECT) 06/14/24 00:56 Influenza Type B (PCR) Not detected (NOT DETECT) 06/14/24 00:56 M. pneumoniae (PCR) Not detected (NOT DETECT) 06/14/24 00:56 Parainfluenza 1 (PCR) Not detected (NOT DETECT) 06/14/24 00:56 Parainfluenza 2 (PCR) Not detected (NOT DETECT) 06/14/24 00:56 Parainfluenza 3 (PCR) Not detected (NOT DETECT) 06/14/24 00:56 Parainfluenza 4 (PCR) Not detected (NOT DETECT) 06/14/24 00:56 RSV Type A (PCR) Not detected (NOT DETECT) 06/14/24 00:56 RSV Type B (PCR) Not detected (NOT DETECT) 06/14/24 00:56 Entero/Rhino (PCR) Not detected (NOT DETECT) 06/14/24 00:56 SARS-CoV-2 (PCR) Detected (NOT DETECT) A 06/14/24 00:56 All radiology interpretation(s) finalized by discharge Discharge Plan Discharge Admit Provider: Bakari Quiñones Condition: Stable Coding Level of Care Code ED [employer]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
[2024-06-14 01:47] LABS: Basophils % 0.2 %; Eosinophils # 0.2 10^3/uL (0.0-0.8); Eosinophils % 4.2 %; Hematocrit 43.7 % (36-47); Lymphocytes # 0.3 10^3/uL (0.8-4.8); Lymphocytes % 6.2 %; Mean Corpuscular Hemoglobin 25.9 pg (27-33); Mean Corpuscular Volume 86.5 fl (85-98); Mean Platelet Volume 9.3 fL (7.4-10.4); Monocytes # 0.6 10^3/uL (0.2-0.9); Monocytes % 11.8 %; Neutrophils # 4.02 10^3/uL (1.8-7.7); Neutrophils % 77.4 %; Nucleated Red Blood Cells % 0 %; Platelet Count 234 10^3/cmm (157-399); Red Blood Count 5.05 10^6/uL (3.85-5.65); Red Cell Distribution Width 17.3 % (12.1-15.1); White Blood Count 5.19 10^3/uL (3.29-11.43)
[2024-06-14 02:00] LABS: D Dimer 0.96 ug/mLFEU (0-0.59)
--- NOTE | 2024-06-14 02:00 | CTR_ITS ---
PROCEDURE INFORMATION: Exam: CTA Chest With Contrast Exam date and time: 06/14/2024 2:20 AM Age: 49 years old Clinical indication: Pain and abnormal findings; Abnormal diagnostic tests; Elevated d-dimer; Shortness of breath; Prior surgery; Surgery date: 6+ months; Surgery type: Thoracolumbar fusion; Patient HX: SOB with back pain and tachycardia. Dimer 0.98. ; Additional info: SOB, chest tightness, tachycardia TECHNIQUE: Imaging protocol: Computed tomographic angiography of the chest with contrast. Exam focused on the arteries. 3D rendering (Not supervised by radiologist): MIP and/or 3D reconstructed images were created by the technologist. Radiation optimization: All CT scans at this facility use at least one of these dose optimization techniques: automated exposure control; mA and/or kV adjustment per patient size (includes targeted exams where dose is matched to clinical indication); or iterative reconstruction. Contrast material: OMNI 350; Contrast volume: 119 ml; Contrast route: INTRAVENOUS (IV); COMPARISON: CT angio chest PE protcl [id number] 12/31/2020 10:11 AM RADIATION DOSE METRICS: Total DLP (mGy-cm): 976.77 FINDINGS: Pulmonary arteries: Normal. No pulmonary emboli. Aorta: Unremarkable. No aortic aneurysm. No aortic dissection. Lungs: Mosaic attenuation of the lungs present which may be related to air trapping or pulmonary edema. There are multiple noncalcified pulmonary nodules throughout the lungs. The largest measures up to 6 mm in the right upper lobe (series 28, image 106. Pleural spaces: Unremarkable. No pneumothorax. No pleural effusion. Heart: Unremarkable. No cardiomegaly. No pericardial effusion. Lymph nodes: There is mediastinal and hilar lymphadenopathy. There is a subcarinal lymph node measuring 2.6 cm in short axis. There is a precarinal lymph node measuring 1.8 cm in short axis. Hilar lymph nodes measure up to 2.1 cm in short axis. Overall, these findings are similar in appearance when compared to reference study. There is no axillary lymphadenopathy. Bones/joints: Multilevel degenerative changes involve the spine. Soft tissues: Unremarkable. CT/CT angio chest PE protcl [id number] IMPRESSION: 1. Negative exam for pulmonary embolus and aortic dissection. 2. Multiple pulmonary nodules throughout the lungs. Follow-up per Fleischner criteria recommended. 3. Extensive mediastinal and axillary lymphadenopathy. Etiology not discerned on this exam. The differential diagnosis includes malignancy, granulomatous disease and sarcoidosis. 4. Mosaic attenuation of the lung parenchyma which may be related to air trapping or mild alveolar edema. For patients at low risk (minimal or absent history of smoking and of other known risk factors), recommend CT Chest at 3-6 months, then consider CT Chest at 18-24 months. For patients at high risk (history of smoking or of other known risk factors), recommend CT Chest at 3-6 months, then CT Chest at 18-24 months. (Reference: Shereen) REFERENCES: Shereen Saravia, et al. Guidelines for Management of Incidental Pulmonary Nodules Detected on CT Images: From the Fleischner Society 2017. Radiology. 2017;284(1):228-243.
[2024-06-14 02:03] LABS: Troponin(5th) Baseline 10 ng/L (0-10)
[2024-06-14 02:05] LABS: Lactic Sepsis W/Reflex 1.9 mmol/L (0.5-2.2)
[2024-06-14] MEDS: ipratropium-albuterol 3 mL Neb INHALATION (02:06)
[2024-06-14 02:08] LABS: Alanine Aminotransferase 19 U/L (0-33); Albumin Level 3.6 g/dL (3.5-5.2); Alkaline Phosphatase 188 U/L (35-105); Anion Gap 15.4 (5-19); Aspartate Amino Transferase 26 U/L (0-32); Blood Urea Nitrogen 14 mg/dL (6-20); Calcium 8.6 mg/dL (8.5-10.5); Carbon Dioxide 25 mmol/L (22-29); Chloride 103 mmol/L (98-107); Creatinine Clr Calc Pharmacy 141.6524; Globulin 3.5 g/dL (1.3-4.6); Glomerular Filtration Rate 88.9 mL/min (90-130); Glucose 107 mg/dL (65-115); NT Pro B Type Natriuretic Pept 518 pg/mL (0-125); Osmolality Calculated 289 mOsm/kg (285-295); Potassium 4.4 mmol/L (3.5-5.1); Sodium 139 mmol/L (136-145); Total Bilirubin 0.4 mg/dL (0.15-1.2); Total Protein 7.1 g/dL (6.6-8.7)
--- NOTE | 2024-06-14 02:33 | P.HP_ITS ---
"Providers/Chief Complaint 2 Primary Care Provider: Naren Gale MD Chief Complaint: Back Hurts\\Chest Hurts\\SOB History of Present Illness Quynh Spangler is a 49 year old female History of DVT not on anticoagulation, was evaluated by cardiology for dyspnea on exertion stress test unremarkable, EF preserved 60%Follows up with Dr. Epstein for her left lower extremity venous stasis ulcer, wears compression stockings, recently started taking antibiotic twice a day regimen, does not know the name, no recent fever presented to the hospital for worsening of shortness of breath. Patient is stating that she is struggling to breathe, this started on Friday, she has not noticed any fever, diarrhea or chest pain, she has been experiencing multiple bouts of cough, sputum production. Patient lives alone with her dog at home, works at [employer]. She has an appointment with Dr. Epstein tomorrow. Patient is stating that her main reason to come to the hospital is back pain, shortness of breath, hot flashes At the time of my evaluation she is requiring 2 L of oxygen, CT chest showed mosaic pattern consistent with CHF exacerbation, she is afebrile, Her leg wound culture has shown Pseudomonas, Staph aureus In her home medications she has doxycycline and levofloxacin listed Review of Systems 2 Const: Reports: chills Eyes: Denies: change in vision ENMT: Denies: throat pain Card: Denies: chest pain Resp: Reports: dyspnea GI: Denies: abdominal pain : Denies: flank pain Musc: Reports: back pain Medications/Allergies Home Medications Medication Instructions Recorded Confirmed Last Taken Type acetaminophen 500 mg tablet 1,000 mg PO PRN PRN Pain 12/31/20 01/22/24 Unknown History (Tylenol Extra Strength) ypgufpw-wjzolyemdbavn-pvrgwnkn 250 1 tab PO Q6H PRN Headache 01/21/22 01/22/24 Unknown History mg-250 mg-65 mg tablet (Excedrin Extra Strength) furosemide 20 mg tablet 20 mg PO DAILY #30 tabs 01/21/22 01/22/24 Unknown Rx potassium chloride 20 mEq 20 meq PO DAILY #30 tabs 01/21/22 01/22/24 Unknown Rx tablet,extended release tramadol 50 mg tablet 50 mg PO Q8H PRN pain (scale score 11/12/22 01/22/24 Unknown Rx 7-10) #14 tabs aspirin 325 mg tablet 325 mg PO DAILY 10/21/23 01/22/24 Unknown History hydrocodone 5 mg-acetaminophen 325 1 tab PO BID PRN pain 5 days #10 02/20/24 02/20/24 Unknown Rx mg tablet tabs doxycycline hyclate 100 mg tablet 100 mg PO DAILY 10 days #10 tabs 02/27/24 02/27/24 Unknown Rx linezolid 600 mg tablet 600 mg PO BID 10 days #20 tabs 02/27/24 02/27/24 Unknown Rx levofloxacin 500 mg tablet 500 mg PO DAILY #14 tabs 03/01/24 Unknown Rx amoxicillin 500 mg-potassium 1 tab PO BID #14 tabs 04/23/24 04/23/24 Unknown Rx clavulanate 125 mg tablet (Augmentin) sulfamethoxazole 800 1 tab PO BID #14 tabs 06/10/24 06/10/24 Unknown Rx mg-trimethoprim 160 mg tablet Allergies Allergy/AdvReac Type Severity Reaction Status Date / Time No Known Allergies Allergy Verified 06/14/24 00:44 PFSH Acute 2 PFSH: Medical History Dyspnea on exertion Saphenofemoral venous reflux Pneumonia due to COVID-19 virus No pertinent past medical history Surgical History History of cholecystectomy H/O hernia repair Previous back surgery H/O hand surgery History of lumpectomy of right breast Family History Father CAD (coronary artery disease) Stroke Denies family history of Diabetes Cancer Hypertension Social History Smoking and tobacco/nicotine status: former use of tobacco/nicotine Alcohol intake: never Substance/Drug Use: never Lives independently: Yes Household members: none Housing: House Marital status: Single Number of children: 0 Pets and animals: Yes Pets & animals: dog(s) Vitals/I&O/Wt Last Vital Signs Temp 98.3 F 06/14/24 00:36 Pulse 100 06/14/24 02:12 Resp 17 06/14/24 02:06 BP 140/86 06/14/24 01:01 Pulse Ox 94 06/14/24 02:06 O2 Del Method Nasal Cannula 06/14/24 02:06 O2 Flow Rate 1 06/14/24 02:06 Weight last 48 hrs Weight 138.346 kg Physical Exam 2 Narrative: Currently patient is on 2 L No active chest pain Hemodynamically stable Complaining of fatigue and back pain Lower extremity edema compression wraps Foul-smelling dressing S1, S2 No significant audible stridor or wheezing Nasal congestion Distended nontender abdomen Data 06/14/24 00:56 06/14/24 00:56 Micro: Microbiology 06/14/24 01:45 Blood Culture - Preliminary Blood SPECIMEN COLLECTED 06/14/24 01:40 Blood Culture - Preliminary Blood SPECIMEN COLLECTED A&P Assessment and plan (1) Bronchitis: (2) Acute exacerbation of congestive heart failure: (3) Hypoxia: Plan Acute CHF exacerbation Previous echo showed preserved action fraction Start IV Lasix No need to repeat echo Left leg venous stasis ulcer Previous urine culture positive for Pseudomonas and Staph aureus Continue doxycycline and levofloxacin Abnormal D-dimer rule out thromboembolic disease requested CTA chest and venous Doppler CTA negative for PE however showing mosaic pattern consistent with CHF She may need pulmonary follow-up for her multiple pulmonary nodules Patient lives alone, Works at [employer] Full code Cardiac diet DVT prophylaxis heparin which will need to be adjusted secondary to her high BMI Chronic history of DVT however not on anticoagulating agent Patient has an appointment with Dr. Epstein tomorrow for wound care Attestations 2 Medical Necessity Statement*: Anticipating discharge within 48 hours Diagnoses Bronchitis J40 Acute exacerbation of congestive heart failure I50.9 Hypoxia R09.02"
[2024-06-14] MEDS: iohexol 350 mg/mL 500 mL Btl (per mL) IV (02:34)
--- NOTE | 2024-06-14 02:34 | ECG_ITS ---
[facility] Date: 2024-06-14 Pat Name: Quynh Spangler Department: Room: Gender: Female Intake Clinician: : 1975 Requested By: Richard Ferguson Order Number: [id number] Reading MD: NATHALIE PERSAUD Measurements Intervals [place] Rate: 105 P: 64 FL: 127 QRS: 73 QRSD: 90 T: 48 QT: 318 QTc: 420 Interpretive Statements SINUS TACHYCARDIA ABNORMAL RHYTHM ECG Compared to ECG 06/14/2024 00:38:14 No significant changes Electronically Signed On 06-21-2024 23:31:41 DUPLEX TRIMMER by NATHALIE PERSAUD [id number]
--- NOTE | 2024-06-14 02:48 | USCV_ITS ---
Quynh Spangler Age: 49 Gender: F : 1975 Exam Date: 06/14/2024 07:23 Ordering Phys: Bakari Quiñones MD Technologist: [place] [facility] [place]: swelling PROCEDURES: Venous duplex imaging was performed in bilateral lower extremities. The following venous structures were evaluated: common femoral vein, profunda vein, proximal portion of the greater saphenous vein, superficial femoral vein, and the popliteal vein. FINDINGS: No evidence of DVT seen in any vessel visualized at this time. CONCLUSIONS Technically limited study due to body habitus, unable to evaluate left PTV and distal GSV Otherwise no evidence of right or left lower extremity DVT. Mitchell Kennedy MD (Electronically Signed) Final Date: 15 June 2024 09:25 S
[2024-06-14 03:18] LABS: Troponin 5 2HR 9.34 ng/L (0-10)
[2024-06-14 03:21] LABS: Troponin 5 2HR Delta -0.66 ABS# (0-10)
[2024-06-14 03:28] LABS: Procalcitonin 0.08 ng/mL (0-0.5)
[2024-06-14] MEDS: cefTRIAXone 1,000 mg SDV 1000 MG IVP (03:31)
[2024-06-14] MEDS: dexamethasone 10 mg/mL INJ IVP (03:33)
[2024-06-14 03:34] LABS: Adenovirus Not Detected (NOT DETECT); Chlamydia Pneumoniae Not Detected (NOT DETECT); Coronavirus 229E,HKU1,NL63,OC4 Not Detected (NOT DETECT); Human Metapneumovirus Not Detected (NOT DETECT); Human Rhinovirus/Enterovirus Not Detected (NOT DETECT); Influenza A Not Detected (NOT DETECT); Influenza A H1 Not Detected (NOT DETECT); Influenza A H1-2009 Not Detected (NOT DETECT); Influenza A H3 Not Detected (NOT DETECT); Influenza B Not Detected (NOT DETECT); Mycoplasma Pneumoniae Not Detected (NOT DETECT); Parainfluenza Virus Type 1 Not Detected (NOT DETECT); Parainfluenza Virus Type 2 Not Detected (NOT DETECT); Parainfluenza Virus Type 3 Not Detected (NOT DETECT); Parainfluenza Virus Type 4 Not Detected (NOT DETECT); Respiratory Syncytial Virus A Not Detected (NOT DETECT); Respiratory Syncytial Virus B Not Detected (NOT DETECT)
[2024-06-14 04:06] LABS: SARS-COV-2 Detected (NOT DETECT)
[2024-06-14 07:31] LABS: Troponin 5 6HR 7.13 ng/L (0-10)
[2024-06-14 07:51] LABS: Troponin 5 6HR Delta -2.87 ng/L (0-12)
--- NOTE | 2024-06-14 08:43 | ECG_ITS ---
[facility] Test Date: 2024-06-14 Pat Name: Quynh Spangler Department: Room: [facility]IP Gender: Female Management Aide: : 1975 Requested By: Richard Ferguson Order Number: [id number] Gely MD: NATHALIE PERSAUD Measurements Intervals [place] Rate: 93 P: 58 [place]: 134 QRS: 50 QRSD: 96 T: 42 QT: 326 QTc: 407 Interpretive Statements SINUS RHYTHM POSSIBLE RIGHT ATRIAL ENLARGEMENT [0.25mV P-WAVE] Compared to ECG 06/14/2024 02:34:46 Sinus tachycardia no longer present Electronically Signed On 06-21-2024 23:31:38 REEL SYSTEM OPERATOR by NATHALIE PERSAUD [id number]
--- NOTE | 2024-06-14 08:52 | P.PN_ITS ---
Subjective 2 Subjective: This oxygen requirement is not new. She is not normally on oxygen. Denies history of lung disease in herself, although her grandfather had COPD. She denies history of smoking. 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 Vitals/I&O/Wt Last Vital Signs Temp 98.3 F 06/14/24 00:36 Pulse 95 06/14/24 07:00 Resp 23 H 06/14/24 06:35 BP 129/68 06/14/24 07:00 Pulse Ox 94 06/14/24 07:00 O2 Del Method Nasal Cannula 06/14/24 07:00 O2 Flow Rate 2 06/14/24 07:00 06/13/24 06/14/24 06/14/24 22:59 06:59 14:59 Intake Total 340 / 340 Balance 340 / 340 Weight last 48 hrs Weight 138.346 kg Physical Exam 2 Const: COMMON NORMALS: patient oriented x3 and alert GENERAL APPEARANCE: c ooperative ORIENTATION/CONSCIOUSNESS: Yes awake HENMT: COMMON NORMALS: oropharynx normal Neck/C-Spine: COMMON NORMALS: no JVD Resp: COMMON NORMALS: normal respiratory effort and clear to auscultation bilaterally AUSCULTATION: clear to auscultation bilaterally Cardio: COMMON NORMALS: no JVD, regular rhythm, S1 normal heart sound present, S2 normal heart sound present and No murmurs present (Cardio) RHYTHM: regular rhythm HEART SOUNDS: S1 normal heart sound present and S2 normal heart sound present GI: COMMON NORMALS: Normal to inspection, nondistended, normoactive bowel sounds present, Soft to palpation and non-tender PALPATION: Yes Soft to palpation Extremity: COMMON NORMALS: no joint enlargement OTHER: Chronic bilateral lymphedema, with 2+ edema, worse on the left. Neuro: COMMON NORMALS: patient oriented x3 and moves all extremities S ENSORIUM/ORIENTATION: Yes alert Skin: COMMON NORMALS: no rashes or lesions noted GENERAL SKIN EXAM: no rashes or lesions noted Data 06/14/24 00:56 06/14/24 00:56 Micro: Microbiology 06/14/24 01:45 Blood Culture - Preliminary Blood SPECIMEN COLLECTED 06/14/24 01:40 Blood Culture - Preliminary Blood SPECIMEN COLLECTED A&P Assessment and plan (1) Bronchitis: (2) Acute exacerbation of congestive heart failure: (3) Hypoxia: Plan Severe COVID-19 pneumonia: Severe COVID-19 with new hypoxia, requiring 2 L of oxygen, not normally oxygen, denies history of lung disease. Non-smoker. Discussed with her additional treatment with remdesivir, Decadron. Started. Monitor for risk of hyperglycemia, hypertension, gastritis, encephalopathy with IV steroid. Reassess glucose, chemistry. Monitor oxygenation. VTE prophylaxis with heparin is currently requested. Increased to every 8 hours reviewed D- dimer, 0.96. Repeat D-dimer. Acute CHF exacerbation: Has been started on Lasix for acute diastolic decompensated CHF. IV 40 mg Lasix daily. Monitor intake and output, monitor for risk of electrolyte deficiency, hypovolemia, renal dysfunction with IV Lasix. Reassess renal function, chemistry, volume status. Previous echo showed preserved ejection fraction Left leg venous stasis ulcer Previous culture positive for Pseudomonas and Staph aureus Continue doxycycline and levofloxacin Abnormal D-dimer rule out thromboembolic disease requested CTA chest and venous Doppler CTA negative for PE however showing mosaic pattern consistent with CHF Discussed with her regarding findings of pulmonary nodules and lymphadenopathy on CT, currently cannot be clearly defined, but discussed with her we will need to follow-up for further workup and exclusion of malignancy. Current additional possibilities include acute infection/viral infection with COVID-19, as well as noted acute CHF. She will follow-up with her primary provider and will be trying to arrange follow-up in [place] with pulmonology. Patient lives alone, Works at [employer] Full code Cardiac diet DVT prophylaxis heparin which will need to be adjusted secondary to her high BMI Chronic history of DVT however not on anticoagulating agent Patient has an appointment with Dr. Epstein tomorrow for wound care Attestations 2 Medical Necessity Statement*: Admission of over 2 midnights anticipated for assessment management of severe COVID-19 infection with new hypoxia, decompensated diastolic CHF, possible acute decompensated diastolic CHF. and High MDM includes described risk of complication, morbidity or mortality of management as documented Diagnoses Bronchitis J40 Acute exacerbation of congestive heart failure I50.9 Hypoxia R09.02
[2024-06-14] MEDS: sennosides-docusate Tablet 1 TAB PO (09:28)
[2024-06-14] MEDS: doxycycline 100 mg Tablet PO ×2 (09:28→17:09)
[2024-06-14] MEDS: levoFLOXacin 750 mg Tablet PO (09:28)
[2024-06-14] MEDS: aspirin 325 mg Tablet PO (09:28)
[2024-06-14] MEDS: remdesivir 200 MG in sodium chloride 0.9% (100 ml) 60 ML 100 MG IV (09:29)
[2024-06-14] MEDS: dexamethasone 10 mg/mL INJ 6 MG IVP (09:32)
[2024-06-14] MEDS: FUROsemide 10 mg/mL SDV 10mL 40 MG IVP (09:33)
[2024-06-14] MEDS: heparin 5,000 unit/mL INJ 1 mL 5000 UNIT SUBCUT ×2 (09:35→17:09)
--- NOTE | 2024-06-14 15:23 | PC.NURSE ---
Addendum entered by Radha Ordaz LPN 06/14/24 16:07: Pt transferred up to med surg floor, room 275, at 1600. This nurse assumed care of pt at this time. Original Note: This nurse took report from CHARY Lorenz in ER at 1523.
[2024-06-15] VITALS (8 sets, daily range): BP systolic 116–130; BP diastolic 71–85; PULSE 71–98; RESP 16–18; TEMP 36.5–36.8; O2SAT 91–95
[2024-06-15] MEDS: heparin 5,000 unit/mL INJ 1 mL 5000 UNIT SUBCUT ×3 (00:23→18:10)
[2024-06-15] MEDS: remdesivir 100 MG in sodium chloride 0.9% (100 ml) 80 ML IV (05:11)
[2024-06-15 05:41] LABS: Eosinophils % 0.3 %; Hematocrit 38.9 % (36-47); Lymphocytes # 0.6 10^3/uL (0.8-4.8); Lymphocytes % 15.2 %; Mean Corpuscular HGB Conc 29.8 g/dL (30-55); Mean Corpuscular Hemoglobin 25.7 pg (27-33); Mean Corpuscular Volume 86.3 fl (85-98); Mean Platelet Volume 9.5 fL (7.4-10.4); Monocytes # 0.5 10^3/uL (0.2-0.9); Monocytes % 13.6 %; Neutrophils # 2.55 10^3/uL (1.8-7.7); Neutrophils % 70.6 %; Nucleated Red Blood Cells % 0 %; Platelet Count 221 10^3/cmm (157-399); Red Blood Count 4.51 10^6/uL (3.85-5.65); Red Cell Distribution Width 17.3 % (12.1-15.1); White Blood Count 3.61 10^3/uL (3.29-11.43)
[2024-06-15 06:28] LABS: Anion Gap 9.6 (5-19); Blood Urea Nitrogen 20 mg/dL (6-20); Calcium 8.7 mg/dL (8.5-10.5); Carbon Dioxide 29 mmol/L (22-29); Chloride 102 mmol/L (98-107); Creatinine Clr Calc Pharmacy 112.0147; Glomerular Filtration Rate 66.5 mL/min (90-130); Glucose 101 mg/dL (65-115); Osmolality Calculated 285 mOsm/kg (285-295); Potassium 4.6 mmol/L (3.5-5.1); Sodium 136 mmol/L (136-145)
--- NOTE | 2024-06-15 08:16 | P.PN_ITS ---
Subjective 2 Subjective: She is subjectively feeling somewhat better today. Still requiring oxygen about 3 L. No nausea or vomiting or diarrhea. Vitals/I&O/Wt Last Vital Signs Temp 97.9 F 06/15/24 07:43 Pulse 74 06/15/24 07:43 Resp 17 06/15/24 07:43 BP 121/77 06/15/24 07:43 Pulse Ox 92 06/15/24 07:43 O2 Del Method Nasal Cannula 06/15/24 07:43 O2 Flow Rate 2.5 06/15/24 07:43 06/14/24 06/15/24 06/15/24 22:59 06:59 14:59 Intake Total 100 / 100 300 / 400 Balance 100 / 100 300 / 400 Weight last 48 hrs Weight 142.201 kg Weight 138.346 kg Weight 138.346 kg Physical Exam 2 Const: COMMON NORMALS: patient oriented x3 and alert GENERAL APPEARANCE: c ooperative ORIENTATION/CONSCIOUSNESS: Yes awake HENMT: COMMON NORMALS: oropharynx normal Neck/C-Spine: COMMON NORMALS: no JVD Resp: COMMON NORMALS: normal respiratory effort and clear to auscultation bilaterally AUSCULTATION: clear to auscultation bilaterally Cardio: COMMON NORMALS: no JVD, regular rhythm, S1 normal heart sound present, S2 normal heart sound present and No murmurs present (Cardio) RHYTHM: regular rhythm HEART SOUNDS: S1 normal heart sound present and S2 normal heart sound present GI: COMMON NORMALS: Normal to inspection, nondistended, normoactive bowel sounds present, Soft to palpation and non-tender PALPATION: Yes Soft to palpation Extremity: COMMON NORMALS: no joint enlargement OTHER: Chronic bilateral lymphedema, with 2+ edema, worse on the left. Neuro: COMMON NORMALS: patient oriented x3 and moves all extremities S ENSORIUM/ORIENTATION: Yes alert Skin: COMMON NORMALS: no rashes or lesions noted GENERAL SKIN EXAM: no rashes or lesions noted Data 06/15/24 05:13 06/15/24 05:13 Micro: Microbiology 06/14/24 01:40 Blood Culture - Preliminary Blood NEGATIVE TO DATE 06/14/24 01:45 Blood Culture - Preliminary Blood NEGATIVE TO DATE A&P Assessment and plan (1) Bronchitis: (2) Acute exacerbation of congestive heart failure: (3) Hypoxia: Plan Severe COVID-19 pneumonia: Worsening oxygen requirement, up to 3 L overnight and this morning. Reviewed vitals, CBC, D-dimer, afebrile, without leukocytosis. D-dimer noted with worsening up to 1.3. Reviewed BMP, unremarkable. Discussed with her continuation of treatment of severe COVID-19 pneumonia, continue remdesivir, continue Decadron, monitor for risk of steroid related adverse effects, hypertension, hyperglycemia, gastritis, encephalopathy. Reviewed blood glucose. Monitor oxygenation. VTE prophylaxis with heparin is currently requested. Repeat D-dimer. May need oxygen at discharge. Discussed with case management director, nursing. Acute CHF exacerbation: Reviewed intake and output, output not charted. For now continues on IV Lasix 40 mg, reassess, monitor for risk of hypovolemia, renal dysfunction, trial of transit. Reassess chemistry. Monitor intake and output. Previous echo showed preserved ejection fraction Left leg venous stasis ulcer: Reviewed venous duplex study, has been taken, not interpreted. Previous culture positive for Pseudomonas and Staph aureus Continue doxycycline and levofloxacin Resume follow-up with wound care after discharge. Abnormal D-dimer rule out thromboembolic disease requested CTA chest and venous Doppler CTA negative for PE however showing mosaic pattern consistent with CHF As per discussion with her regarding findings of pulmonary nodules and lymphadenopathy on CT, currently cannot be clearly defined, but discussed with her we will need to follow-up for further workup and exclusion of malignancy. Current additional possibilities include acute infection/viral infection with COVID-19, as well as noted acute CHF. She will follow-up with her primary provider and will be trying to arrange follow-up in [place] with pulmonology. Patient lives alone, Works at [employer] Full code Cardiac diet DVT prophylaxis heparin which will need to be adjusted secondary to her high BMI Chronic history of DVT however not on anticoagulating agent Attestations 2 Medical Necessity Statement*: Continue admission for assessment and management of severe COVID-19 pneumonia with concomitant diastolic CHF exacerbation. Diagnoses Bronchitis J40 Acute exacerbation of congestive heart failure I50.9 Hypoxia R09.02
--- NOTE | 2024-06-15 09:47 | PC.CHAP ---
Pastoral Care Encounter/Spiritual Assessment Type of Contact [] Declined early head start teacher visit [] Patient/Family/Request visit [] Outpatient visit [] Follow-up visit [] Physician referral [] Code/Alert [] Routine visit [] Staff referral [] Actively dying [] Patient sleeping [] Family support [] [] Out of room [] Palliative care [] [] Receiving care in room [] Pre-surgical visit [] Trauma [] Long length of stay [] ICU visit [x] Other:Contact precautions. No visit. Relational/Emotional Strength [] Patient feels connected with others/family/visitors/staff [] Distress [] Loneliness/isolation [] Abandonment Spirituality of Patient [] Person of Nuha [] Attends Oriental Orthodox of their Nuha [] Believes in Prayer [] Reads Bible or Sikhism materials [] There are Spiritual issues to be addressed Electrical Designer Drafter Interventions [] Prayer [] Active listening [] Non-anxious presence [] Spiritual/emotional support [] Crisis/trauma care [] Spiritual counseling [] Bereavement support [] Provided bereavement packet [] Provided Bible/devotional materials [] Provided toy/stuffed animal, coloring book to patient or family member [] Provided Communion [] Anointing/[place] [] Salvation [] Completed spiritual assessment [] Other: Impact on Illness or Injury [] Angry [] Fearful [] Anxious [] Often cries [] Exhaustion [] Unable to work [] Unable to attend pentecostal [] Unable to walk/stand [] Unable to read [] Unable to drive [] Unable to eat/drink [] Unable to sleep [] Unable to be with family [] Patient intubated [] Other: Summary Time spent with patient
[2024-06-15] MEDS: levoFLOXacin 750 mg Tablet PO (10:09)
[2024-06-15] MEDS: aspirin 325 mg Tablet PO (10:09)
[2024-06-15] MEDS: dexamethasone 10 mg/mL INJ 6 MG IVP (10:09)
[2024-06-15] MEDS: sennosides-docusate Tablet 1 TAB PO (10:09)
[2024-06-15] MEDS: doxycycline 100 mg Tablet PO ×2 (10:09→18:09)
[2024-06-15] MEDS: FUROsemide 10 mg/mL SDV 10mL 40 MG IVP (10:10)
[2024-06-16] VITALS (7 sets, daily range): BP systolic 113–131; BP diastolic 71–82; PULSE 70–86; RESP 16–18; TEMP 36.4–36.9; O2SAT 91–96
[2024-06-16] MEDS: heparin 5,000 unit/mL INJ 1 mL 5000 UNIT SUBCUT (00:39)
[2024-06-16] MEDS: remdesivir 100 MG in sodium chloride 0.9% (100 ml) 80 ML IV (05:09)
[2024-06-16 06:27] LABS: D Dimer 1.41 ug/mLFEU (0-0.59)
--- NOTE | 2024-06-16 09:59 | P.DS_ITS ---
Discharge Providers Date of Admission: 06/14/24 09:05 Date of Discharge: June 16, 2024 Attending Provider at Admission: Bakari Quiñones MD Attending Provider at Discharge: Fritz Mike Primary Care Provider: Naren Gale MD Diagnoses at Discharge Discharge Diagnosis (1) Bronchitis: Status: Acute (2) Acute exacerbation of congestive heart failure: Status: Acute (3) Hypoxia: Status: Acute Reason for Visit Reason for Visit: Back Hurts\Chest Hurts\SOB Brief History: Quynh Spangler is a 49 year old female History of DVT not on anticoagulation, was evaluated by cardiology for dyspnea on exertion stress test unremarkable, EF preserved 60%Follows up with Dr. Epstein for her left lower extremity venous stasis ulcer, wears compression stockings, recently started taking antibiotic twice a day regimen, does not know the name, no recent fever presented to the hospital for worsening of shortness of breath. Patient is stating that she is struggling to breathe, this started on Friday, she has not noticed any fever, diarrhea or chest pain, she has been experiencing multiple bouts of cough, sputum production. Patient lives alone with her dog at home, works at [employer] She has an appointment with Dr. Epstein tomorrow. Patient is stating that her main reason to come to the hospital is back pain, shortness of breath, hot flashes At the time of my evaluation she is requiring 2 L of oxygen, CT chest showed mosaic pattern consistent with CHF exacerbation, she is afebrile, Her leg wound culture has shown Pseudomonas, Staph aureus Hospital Course Hospital Course 49-year-old lady was admitted after presenting with bodyaches, hot flashes, shortness of breath. She was found to have new oxygen requirement. CT angiogram chest without finding of PE, however, with abnormal findings with multiple pulmonary nodules throughout the lungs. As well as extensive mediastinal and axillary lymphadenopathy, etiology not discerned, differential including malignancy, granulomatous disease and sarcoidosis. Was a continuation of the lung parenchyma which may be related to air trapping or mild alveolar edema. On presentation with a degree of fluid overload, received IV diuresis in the hospital. Was found to have severe COVID-19 pneumonia and was started on treatment with remdesivir and Decadron. She is still requiring 2 L of oxygen, but subjectively has significantly improved and is wanting to discharge home today. D-dimer with still some mild abnormality, 1.41, likely related to COVID infection, lower extremity duplex technically difficult study, unable to evaluate PTV and distal GSV, but otherwise without evidence of DVT. She will be seeking follow-up with pulmonology for further assessment of lymphadenopathy and pulmonary nodules. Home oxygen evaluation is requested prior to discharge. Her antibiotics are adjusted based on wound culture, she has been prescribed B actrim, and ciprofloxacin is added due to Pseudomonas. Physical Exam Const: COMMON NORMALS: patient oriented x3 and alert GENERAL APPEARANCE: cooperative ORIENTATION/CONSCIOUSNESS: Yes awake HENMT: COMMON NORMALS: oropharynx normal Neck/C-Spine: COMMON NORMALS: no JVD Resp: COMMON NORMALS: normal respiratory effort and clear to auscultation bilaterally AUSCULTATION: clear to auscultation bilaterally Cardio: COMMON NORMALS: no JVD, regular rhythm, S1 normal heart sound present, S2 normal heart sound present and No murmurs present (Cardio) RHYTHM: regular rhythm HEART SOUNDS: S1 normal heart sound present and S2 normal heart sound present GI: COMMON NORMALS: Normal to inspection, nondistended, normoactive bowel sounds present, Soft to palpation and non-tender PALPATION: Yes Soft to palpation Extremity: COMMON NORMALS: no joint enlargement OTHER: Chronic bilateral lymphedema, with 2+ edema, worse on the left. Neuro: COMMON NORMALS: patient oriented x3 and moves all extremities SENSORIUM/ORIENTATION: Yes alert Skin: COMMON NORMALS: no rashes or lesions noted GENERAL SKIN EXAM: no rashes or lesions noted Discharge Data Studies Completed and Pending Completed Studies During Hospitalization Category Date Time Status CT angio chest PE protcl [id number] Urgent Cat Scan 06/14/24 02:00 Completed XR chest 1V portable [id number] Stat Exams 06/14/24 01:24 [place] [id number] Routine Ultrasound 06/14/24 02:48 Completed Pending at discharge Category Date Time Status Blood Culture Stat Lab 06/14/24 01:45 Results D Dimer AM LABS Lab 06/17/24 04:00 Ordered Radiology Impressions Chest X-Ray 06/14/24 01:24 IMPRESSION: Patchy airspace disease throughout the bilateral mid and lower lung schrader. Chest CTA 06/14/24 02:00 IMPRESSION: 1. Negative exam for pulmonary embolus and aortic dissection. 2. Multiple pulmonary nodules throughout the lungs. Follow-up per Fleischner criteria recommended. 3. Extensive mediastinal and axillary lymphadenopathy. Etiology not discerned on this exam. The differential diagnosis includes malignancy, granulomatous disease and sarcoidosis. 4. Mosaic attenuation of the lung parenchyma which may be related to air trapping or mild alveolar edema. For patients at low risk (minimal or absent history of smoking and of other known risk factors), recommend CT Chest at 3-6 months, then consider CT Chest at 18-24 months. For patients at high risk (history of smoking or of other known risk factors), recommend CT Chest at 3-6 months, then CT Chest at 18-24 months. (Reference: Shereen) REFERENCES: Shereen Saravia, et al. Guidelines for Management of Incidental Pulmonary Nodules Detected on CT Images: From the Fleischner Society 2017. Radiology. 2017;284(1):228-243. Laboratory Results WBC 3.61 10^3/uL (3.29-11.43) 06/15/24 05:13 RBC 4.51 10^6/uL (3.85-5.65) 06/15/24 05:13 Hgb 11.60 g/dL (11.27-16.99) 06/15/24 05:13 Hct 38.9 % (36-47) 06/15/24 05:13 MCV 86.3 fl (85-98) 06/15/24 05:13 MCH 25.7 pg (27-33) L 06/15/24 05:13 MCHC 29.8 g/dL (30-55) L 06/15/24 05:13 RDW 17.3 % (12.1-15.1) H 06/15/24 05:13 Plt Count 221 10^3/cmm (157-399) 06/15/24 05:13 MPV 9.5 fL (7.4-10.4) 06/15/24 05:13 Neut % (Auto) 70.6 % 06/15/24 05:13 Lymph % (Auto) 15.2 % 06/15/24 05:13 [facility] % (Auto) 13.6 % 06/15/24 05:13 Eos % (Auto) 0.3 % 06/15/24 05:13 Baso % (Auto) 0.0 % 06/15/24 05:13 Neut # (Auto) 2.55 10^3/uL (1.8-7.7) 06/15/24 05:13 Lymph # (Auto) 0.6 10^3/uL (0.8-4.8) L 06/15/24 05:13 [facility] # (Auto) 0.5 10^3/uL (0.2-0.9) 06/15/24 05:13 Eos # (Auto) 0.0 10^3/uL (0.0-0.8) 06/15/24 05:13 Baso # (Auto) 0.0 10^3/uL (0.0-0.1) 06/15/24 05:13 Nucleated RBC % (auto) 0 % 06/15/24 05:13 Nucleated RBCs # 0.0 /100WBC 06/15/24 05:13 D-Dimer 1.41 ug/mLFEU (0-0.59) H 06/16/24 04:35 Sodium 136 mmol/L (136-145) 06/15/24 05:13 Potassium 4.6 mmol/L (3.5-5.1) 06/15/24 05:13 Chloride 102 mmol/L (98-107) 06/15/24 05:13 Carbon Dioxide 29 mmol/L (22-29) 06/15/24 05:13 Anion Gap 9.6 (5-19) 06/15/24 05:13 BUN 20 mg/dL (6-20) 06/15/24 05:13 Creatinine 0.9 mg/dL (0.5-0.9) 06/15/24 05:13 GFR Calculation 66.5 mL/min (90-130) L 06/15/24 05:13 Glucose 101 mg/dL (65-115) 06/15/24 05:13 Calculated Osmolality 285 mOsm/kg (285-295) 06/15/24 05:13 Lactic Acid 1.9 mmol/L (0.5-2.2) 06/14/24 00:56 Calcium 8.7 mg/dL (8.5-10.5) 06/15/24 05:13 Total Bilirubin 0.4 mg/dL (0.15-1.2) 06/14/24 00:56 AST 26 U/L (0-32) 06/14/24 00:56 ALT 19 U/L (0-33) 06/14/24 00:56 Alkaline Phosphatase 188 U/L (35-105) H 06/14/24 00:56 Troponin T Baseline 10 ng/L (0-10) 06/14/24 00:56 Troponin T 120 Minute 9.34 ng/L (0-10) 06/14/24 02:35 Delta Troponin T -0.66 ABS# (0-10) L 06/14/24 02:35 Troponin T Hi Sens 6Hr 7.13 ng/L (0-10) 06/14/24 06:56 Troponin T Hi Sens 6Hr Delta -2.87 ng/L (0-12) L 06/14/24 06:56 NT-Pro-B Natriuret Pep 518 pg/mL (0-125) H 06/14/24 00:56 Total Protein 7.1 g/dL (6.6-8.7) 06/14/24 00:56 Albumin 3.6 g/dL (3.5-5.2) 06/14/24 00:56 Globulin 3.5 g/dL (1.3-4.6) 06/14/24 00:56 Procalcitonin 0.08 ng/mL (0-0.5) 06/14/24 00:56 Adenovirus (PCR) Not detected (NOT DETECT) 06/14/24 00:56 C. pneumoniae DNA (PCR) Not detected (NOT DETECT) 06/14/24 00:56 Coronavirus 229E (PCR) Not detected (NOT DETECT) 06/14/24 00:56 Human Metapneumovir PCR Not detected (NOT DETECT) 06/14/24 00:56 Influenza A (H1) PCR Not detected (NOT DETECT) 06/14/24 00:56 Influ A (H1/09) PCR Not detected (NOT DETECT) 06/14/24 00:56 Influenza A (H3) PCR Not detected (NOT DETECT) 06/14/24 00:56 Influenza Type A (PCR) Not detected (NOT DETECT) 06/14/24 00:56 Influenza Type B (PCR) Not detected (NOT DETECT) 06/14/24 00:56 M. pneumoniae (PCR) Not detected (NOT DETECT) 06/14/24 00:56 Parainfluenza 1 (PCR) Not detected (NOT DETECT) 06/14/24 00:56 Parainfluenza 2 (PCR) Not detected (NOT DETECT) 06/14/24 00:56 Parainfluenza 3 (PCR) Not detected (NOT DETECT) 06/14/24 00:56 Parainfluenza 4 (PCR) Not detected (NOT DETECT) 06/14/24 00:56 RSV Type A (PCR) Not detected (NOT DETECT) 06/14/24 00:56 RSV Type B (PCR) Not detected (NOT DETECT) 06/14/24 00:56 Entero/Rhino (PCR) Not detected (NOT DETECT) 06/14/24 00:56 SARS-CoV-2 (PCR) Detected (NOT DETECT) A 06/14/24 00:56 Vitals Last Vital Signs Temp 97.7 F 06/16/24 07:26 Pulse 77 06/16/24 07:57 Resp 18 06/16/24 07:57 BP 113/75 06/16/24 07:26 Pulse Ox 96 06/16/24 07:57 O2 Del Method Nasal Cannula 06/16/24 07:57 O2 Flow Rate 2 06/16/24 07:57 Discharge Plan Discharge Patient Disposition: Home Condition: Stable Prescriptions: New ciprofloxacin HCl 500 mg tablet 500 mg PO BID Qty: 12 0RF Continued sulfamethoxazole-trimethoprim 800-160 mg tablet 1 tab PO BID Qty: 14 0RF furosemide 20 mg tablet 20 mg PO DAILY Qty: 30 0RF metolazone 2.5 mg tablet 2.5 mg PO DAILY potassium chloride 10 mEq tablet extended release 10 meq PO DAILY albuterol sulfate 90 mcg/actuation HFA aerosol inhaler 2 puff INHALATION .Q4-6H Discontinued ibuprofen 600 mg tablet 600 mg PO Q8H Discharge Orders: Discharge Order (Routine); Ordered 06/16/24 Ordered By: Fritz Mike Referrals: Jaclyn Goetz FNP [Referring] - 06/22/24 2:00 pm Discharge Diet: Cardiac Discharge Activity: Oxygen as instructed Patient Instructions: Using Oxygen at Home (GEN), COVID-19 (Coronavirus Disease 2019) (GEN), Opioid Safety Activity Restrictions/Additional Instructions: Please send referral for follow-up with pulmonology for additional assessment of abnormalities found on CT chest with multiple pulmonary nodules, extensive mediastinal and axillary lymphadenopathy. Etiology currently unknown and will need to be investigated to make sure it is not malignancy, granulomatous disease or sarcoidosis. Additionally, CT chest recommended at 3-6 months. Then 18-24 months. Please follow-up with primary provider for reassessment after COVID-19 pneumonia. Follow-up with your primary provider for reassessment of fluid overload/diastolic congestive heart failure episode, likely related to COVID infection. Discharge Attestations Time Spent in Discharge Care*: greater than 30 min Quality Metrics Clinical Quality Measures [ No reported AMI, CVA or VTE this stay] Coding Level of Care Code 79006 Total time (in minutes) for Discharge: 45 Diagnoses Bronchitis J40 Acute exacerbation of congestive heart failure I50.9 Hypoxia R09.02
[2024-06-16] MEDS: FUROsemide 10 mg/mL SDV 10mL 40 MG IVP (10:51)
[2024-06-16] MEDS: dexamethasone 10 mg/mL INJ 6 MG IVP (10:52)
[2024-06-16] MEDS: aspirin 325 mg Tablet PO (10:52)
[2024-06-16] MEDS: levoFLOXacin 750 mg Tablet PO (10:52)
[2024-06-16] MEDS: doxycycline 100 mg Tablet PO (10:52)
[2024-06-16] MEDS: sennosides-docusate Tablet 1 TAB PO (10:52)
== END 2024-06-16 13:10 | disposition home or self-care (01) | DRG 177 ==
LOC: ER 03:11 → ER IP 04:29 → MEDSURG 15:58
PROVIDERS: Admitting Provider Internal Medicine; Emergency Provider Emergency Medicine; PCP Family Medicine; Visit Provider Internal Medicine
DX: U07.1 COVID-19 (principal); I50.33 Acute on chronic diastolic (congestive) heart failure; J12.82 Pneumonia due to coronavirus disease 2019; L97.929 Non-pressure chronic ulcer of unspecified part of left lower leg with unspecified severity; J40 Bronchitis, not specified as acute or chronic; R09.02 Hypoxemia; I87.8 Other specified disorders of veins; I83.029 Varicose veins of left lower extremity with ulcer of unspecified site; B96.5 Pseudomonas (aeruginosa) (mallei) (pseudomallei) as the cause of diseases classified elsewhere; R91.8 Other nonspecific abnormal finding of lung field; R59.0 Localized enlarged lymph nodes; Z90.49 Acquired absence of other specified parts of digestive tract; Z86.718 Personal history of other venous thrombosis and embolism; Z87.891 Personal history of nicotine dependence
CPT/HCPCS: 36415; 71045; 71275; 80048; 80053; 83605; 83880; 84145; 84484; 85025; 85378; 87040; 87486; 87581; 87633; 93005; 93970; 94640; 94664; 94760; 96372; 99285; G0378; J0248; J0696; J1100; J1644; J1940